=== PATIENT | male | born 1940 | race Caucasian/White ===

== ENCOUNTER 2020-01-25 21:40 | Emergency (ER) | payer MEDICARE, SELFPAY ==
[2020-01-25 22:04] VITALS: BP 147/87; PULSE 70; RESP 18; TEMP 36.7; O2SAT 94; BMI 22.8
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
--- NOTE | 2020-01-25 22:36 | XRR_ITS ---
PROCEDURE INFORMATION: Exam: XR Chest, 1 View Exam date and time: 01/25/2020 10:40 PM Age: 79 years old Clinical indication: Shortness of breath; Additional info: AMS TECHNIQUE: Imaging protocol: XR of the chest Views: 1 view. COMPARISON: CR Chest 2 views* [id number] 11/22/2018 2:23 PM FINDINGS: Lungs: Stable calcified nodule in the left apex. Lungs are otherwise clear. Pleural space: There is no pleural effusion or pneumothorax. Heart/Mediastinum: Cardiomediastinal contours are unremarkable. 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 XR/XR chest 1V portable [id number] IMPRESSION: No acute findings.
--- NOTE | 2020-01-25 22:36 | CTR_ITS ---
PROCEDURE INFORMATION: Exam: CT Head Without Contrast Exam date and time: 01/25/2020 10:38 PM Age: 79 years old Clinical indication: Altered mental status/memory loss; Confusion or disorientation; Patient HX: Ams/confusion TECHNIQUE: Imaging protocol: Computed tomography of the head without contrast. Total DLP: 854.43 mGy-cm Radiation optimization: All CT scans at this facility use at least one of these dose optimization techniques: automated exposure control; mA and/or kV adjustment per patient size (includes targeted exams where dose is matched to clinical indication); or iterative reconstruction. COMPARISON: CT head wo con* [id number] 07/25/2018 11:36 AM FINDINGS: Brain: No acute intracranial hemorrhage or mass effect. There is decreased attenuation in the periventricular white matter, likely from microvascular disease. There are old lacunar infarcts in the basal ganglia regions bilaterally, and right thalamus. Additional old infarct suspected in the right periventricular white matter, not significantly changed. No definite acute infarct by CT. MRI could be more sensitive/specific for detection, as clinically directed. Ventricles: Ventricle size is normal for age. Bones/joints: No definite acute skull fracture. Sinuses: Included paranasal sinuses are essentially clear. Mastoid air cells: No significant acute finding. Vasculature: Vascular calcifications in the internal carotid and vertebral basilar systems. CT/CT head wo con* [id number] IMPRESSION: 1. No acute intracranial hemorrhage or mass effect. 2. Changes of microvascular disease, and old infarcts, details above. 3. No definite acute infarct by CT, see above. 4. Other findings discussed above. Radiation Dose CTDIVOL = (mGy): DLP = 854.43 (mGy-cm)
--- NOTE | 2020-01-25 22:37 | ECG_ITS ---
Measurements Intervals [place] Rate: 61 P: 72 WV: 153 QRS: 39 QRSD: 113 T: 69 QT: 376 QTc: 379 SINUS RHYTHM WITH OCCASIONAL SUPRAVENTRICULAR PREMATURE COMPLEXES ANTEROSEPTAL MYOCARDIAL INFARCTION , PROBABLY RECENT [40+ ms Q WAVE IN V1-V4] ACUTE VT INTERPRETATION BASED ON A DEFAULT AGE OF 40 YEARS Compared to ECG 07/01/2018 08:36:45 Myocardial infarct finding now present Electronically Signed On 01-26-2020 19:59:29 EMBROIDERY ASSISTANT by Estella Choudhury M.D. [id number] dover
[2020-01-25] MEDS: sodium chloride 0.9% 1,000 ML 999 ML IV (23:01)
[2020-01-25 23:07] LABS: Basophils # 0.1 10^3/uL (0.0-0.1); Basophils % 0.6 %; Eosinophils # 0.1 10^3/uL (0.0-0.8); Eosinophils % 1.3 %; Hematocrit 43.4 % (42.0-52.0); Hemoglobin 14.2 g/dL (11.7-16.6); Lymphocytes # 1.6 10^3/uL (0.8-4.8); Lymphocytes % 16.8 %; Mean Corpuscular HGB Conc 32.7 g/dL (30.0-36.0); Mean Corpuscular Hemoglobin 30.8 pg (28.0-34.0); Mean Corpuscular Volume 94.1 fL (80-94); Mean Platelet Volume 9.3 fL (7.4-10.4); Monocytes # 0.8 10^3/uL (0.2-0.9); Neutrophils # 6.9 10^3/uL (1.8-7.7); Nucleated Red Blood Cells % 0 %; Platelet Count 247 10^3/cmm (130-400); Red Blood Count 4.61 10^6/uL (4.1-5.3); Red Cell Distribution Width 12.4 % (12.1-15.1); White Blood Count 9.4 10^3/uL (4.0-10.0)
[2020-01-25 23:08] LABS: Add Urine Microscopic? NO
[2020-01-25 23:22] LABS: Bilirubin Urine Neg (NEGATIVE); Blood Urine Neg (Negative); Glucose Urine UA Norm (Normal); Ketones Urine Negative (Negative); Leukocyte Esterase Urine Negative (Negative); Nitrate Urine Negative (Negative); Protein Urine Neg (Negative); Specific Gravity, Urine 1.005 (1.005-1.030); Urine Appearance Clear (CLEAR); Urine Color Straw (Yellow); Urobilinogen Urine Norm (Negative); pH Urine 7 (5-7)
[2020-01-26 00:09] LABS: Alanine Aminotransferase 11 U/L (0-41); Albumin Level 4.5 g/dL (3.5-5.2); Alkaline Phosphatase 66 IU/L (40-130); Anion Gap 17.3 (5-19); Aspartate Amino Transferase 20 U/L (0-40); Blood Urea Nitrogen 16 mg/dL (8-23); Calcium 9.3 mg/dL (8.5-10.5); Carbon Dioxide 30 mmol/L (22-29); Chloride 93 mmol/L (98-107); Creatinine Clr Calc Pharmacy 40.0275; Globulin 2.4 g/dL (1.3-4.6); Glucose 115 mg/dL (65-115); Potassium 3.3 mmol/L (3.5-5.1); Sodium 137 mmol/L (136-145); Total Bilirubin 0.6 mg/dL (0.15-1.2); Total Protein 6.9 g/dL (6.6-8.7)
[2020-01-26 00:23] LABS: Troponin(5th) Baseline 42 ng/mL (0-15)
[2020-01-26 01:28] VITALS: BP 145/81; PULSE 73; RESP 18; O2SAT 97
== END 2020-01-26 01:29 | disposition home or self-care (01) ==
PROVIDERS: Emergency Provider Emergency Medicine; Family Provider Internal Medicine
DX: R41.82 Altered mental status, unspecified (principal); Z87.891 Personal history of nicotine dependence; Z86.73 Personal history of transient ischemic attack (TIA), and cerebral infarction without residual deficits
CPT/HCPCS: 36415; 70450; 71045; 80053; 81003; 83605; 84484; 85025; 87040; 87205; 93005; 96360; 99283; 99284; J7030

== ENCOUNTER → 2020-04-23 08:40 | Outpatient (BNVA) | payer MEDICARE, SELFPAY | PROVIDERS: Family Provider Internal Medicine; Visit Provider Urology | DX: R97.20 Elevated prostate specific antigen [PSA] (principal) | CPT/HCPCS: 81001; 84153 ==

== ENCOUNTER → 2020-09-01 15:39 | Outpatient (BNVA) | payer MEDICARE, SELFPAY | PROVIDERS: Family Provider Internal Medicine; Visit Provider Family Medicine | DX: Z20.828 Contact with and (suspected) exposure to other viral communicable diseases (principal) | CPT/HCPCS: 87635 ==

== ENCOUNTER → 2021-01-20 13:10 | Outpatient (BNVA) | payer MEDICARE, SELFPAY | PROVIDERS: Family Provider Internal Medicine; Visit Provider Urology | DX: R97.20 Elevated prostate specific antigen [PSA] (principal) | CPT/HCPCS: 81003; 84153 ==

== ENCOUNTER 2022-01-31 12:24 | Outpatient (CLI) | payer MEDICARE, SELFPAY ==
--- NOTE | 2022-01-31 12:39 | XRR_ITS ---
PROCEDURE INFORMATION: Exam: XR Chest Exam date and time: 01/31/2022 12:39 PM Age: 81 years old Clinical indication: Condition or disease; Lung condition and disease; Copd; With exacerbation; Patient HX: SOB coughing for years; Additional info: Copd w/exacerbation TECHNIQUE: Imaging protocol: XR of the chest. Views: 2 views. COMPARISON: CR XR chest 1V portable [id number] 01/25/2020 10:46 PM FINDINGS: Lungs: There is a small calcified granuloma in the left apex. Otherwise the lungs are clear. Pleural spaces: Unremarkable. No pleural effusion. No pneumothorax. Heart/Mediastinum: Unremarkable. No cardiomegaly. Bones/joints: Unremarkable. XR/XR chest 2V* [id number] IMPRESSION: No acute abnormality is seen in the chest.
== END 2022-01-31 12:25 | disposition home or self-care (01) ==
PROVIDERS: Visit Provider Clinical Nurse Specialist Adult Health
DX: J44.1 Chronic obstructive pulmonary disease with (acute) exacerbation (principal)
CPT/HCPCS: 71046

== ENCOUNTER → 2022-05-09 14:53 | Outpatient (BNVA) | payer MEDICARE, SELFPAY | PROVIDERS: Visit Provider Family Medicine | DX: R60.9 Edema, unspecified (principal); I10 Essential (primary) hypertension; F03.90 Unspecified dementia, unspecified severity, without behavioral disturbance, psychotic disturbance, mood disturbance, and anxiety; N39.0 Urinary tract infection, site not specified | CPT/HCPCS: 80053; 81000; 83880; 84443; 87086 ==

== ENCOUNTER → 2022-06-23 07:54 | Outpatient (BNVA) | payer MEDICARE, SELFPAY | PROVIDERS: Visit Provider Family Medicine | DX: I10 Essential (primary) hypertension (principal); E78.5 Hyperlipidemia, unspecified | CPT/HCPCS: 80053; 80061 ==

== ENCOUNTER → 2023-02-13 10:18 | Outpatient (BNVA) | payer MEDICARE, SELFPAY | PROVIDERS: PCP Family Medicine; Visit Provider Family Medicine | DX: I10 Essential (primary) hypertension (principal); E78.5 Hyperlipidemia, unspecified | CPT/HCPCS: 80053; 80061; 85025 ==

== ENCOUNTER 2023-03-04 17:49 | Inpatient (IN) | payer MEDICARE, SELFPAY ==
[2023-03-04 17:55] VITALS: BP 142/88; PULSE 81; RESP 16; TEMP 36.4; O2SAT 96
--- NOTE | 2023-03-04 17:59 | ECG_ITS ---
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 Measurements Intervals [place] Rate: 80 P: 148 IA: 147 QRS: 48 QRSD: 94 T: 160 QT: 385 QTc: 444 Interpretive Statements Possibly atrial fibrillation with an abnormal nuclear response rate. Collaborative position. LOW QRS VOLTAGE IN PRECORDIAL LEADS [QRS DEFLECTION < 1.0 mV IN CHEST LEADS] INCOMPLETE RIGHT BUNDLE BRANCH BLOCK [90+ ms QRS DURATION, TERMINAL R IN V1/V2, 40+ ms S IN I/aVL/V4/V5/V6] ANTEROSEPTAL MYOCARDIAL INFARCTION , OF INDETERMINATE AGE [40+ ms Q WAVE IN V1-V4] Compared to ECG 01/25/2020 23:11:01 Low QRS voltage now present Incomplete right bundle-branch block now present Sinus rhythm no longer present Myocardial infarct finding still present Electronically Signed On 03-05-2023 21:57:43 CDT by Estella Choudhury M.D. [id number] f
--- NOTE | 2023-03-04 17:59 | XRR_ITS ---
PROCEDURE INFORMATION: Exam: XR Chest Exam date and time: 03/04/2023 5:18 PM Age: 83 years old Clinical indication: Dyspnea; Additional info: Weakness TECHNIQUE: Imaging protocol: Radiologic exam of the chest. Views: 1 view. COMPARISON: CR XR chest 2V* [id number] 01/31/2022 12:52 PM FINDINGS: Lungs: Stable left apical calcified granuloma. No consolidation. Pleural spaces: Unremarkable. No pleural effusion. No pneumothorax. Heart/Mediastinum: Stable heart size. Bones/joints: Stable bones. XR/XR chest 1V portable [id number] IMPRESSION: No acute findings.
--- NOTE | 2023-03-04 17:59 | CTR_ITS ---
PROCEDURE INFORMATION: Exam: CTA Head With Contrast, Arteriography Exam date and time: 03/04/2023 6:09 PM Age: 83 years old Clinical indication: Stroke-like symptoms; Altered mental status/memory loss and drowsines/somnolence; Additional info: CVA TECHNIQUE: Imaging protocol: Computed tomographic angiography of the head with contrast. Exam focused on the arteries. 3D rendering (Not supervised by radiologist): MIP and/or 3D reconstructed images were created by the technologist. Radiation optimization: All CT scans at this facility use at least one of these dose optimization techniques: automated exposure control; mA and/or kV adjustment per patient size (includes targeted exams where dose is matched to clinical indication); or iterative reconstruction. Contrast material: OMNI 350; Contrast volume: 100 ml; Contrast route: INTRAVENOUS (IV); REPORTING DATA: Count of CT and Cardiac NM exams in prior 12 months: This patient has received 0 known CTs and 0 known cardiac nuclear medicine studies in the 12 months prior to the current study. COMPARISON: CT angio headneck* [id number] 02/16/2018 5:07 PM RADIATION DOSE METRICS: Total DLP (mGy-cm): 1021.68 FINDINGS: ANTERIOR CIRCULATION: Right internal carotid artery: Intracranial segment is patent with no significant stenosis. No aneurysm. Right middle cerebral artery: No occlusion or significant stenosis. No aneurysm. Right anterior cerebral artery: No occlusion or significant stenosis. No aneurysm. Left internal carotid artery: Intracranial segment is patent with no significant stenosis. No aneurysm. Left middle cerebral artery: No occlusion or significant stenosis. No aneurysm. Left anterior cerebral artery: No occlusion or significant stenosis. No aneurysm. POSTERIOR CIRCULATION: Right vertebral artery: No occlusion or significant stenosis. No aneurysm. Left vertebral artery: No occlusion or significant stenosis. No aneurysm. Basilar artery: No occlusion or significant stenosis. No aneurysm. Right posterior cerebral artery: No occlusion or significant stenosis. No aneurysm. Left posterior cerebral artery: No occlusion or significant stenosis. No aneurysm. Brain: Bilateral basal ganglia chronic lacunar-type infarcts and right thalamic chronic lacunar-type infarct is unchanged. There is a new region of hypodensity in the medial left thalamus for example on series 4, image 27 suspicious for an acute or subacute lacunar-type infarct. Involutional changes of the brain are stable. No midline shift. Small old infarct right periventricular deep white matter unchanged. Cerebral ventricles: Stable ventricular size with stable mild ex vacuo prominence. Bones/joints: Unremarkable. No acute fracture. Soft tissues: Unremarkable. PROCEDURE INFORMATION: Exam: CTA Neck With Contrast Exam date and time: 03/04/2023 6:09 PM Age: 83 years old Clinical indication: Stroke-like symptoms; Altered mental status/memory loss and drowsines/somnolence; Additional info: CVA TECHNIQUE: Imaging protocol: Computed tomographic angiography of the neck with contrast. 3D rendering (Not supervised by radiologist): MIP and/or 3D reconstructed images were created by the technologist. Radiation optimization: All CT scans at this facility use at least one of these dose optimization techniques: automated exposure control; mA and/or kV adjustment per patient size (includes targeted exams where dose is matched to clinical indication); or iterative reconstruction. Contrast material: OMNI 350; Contrast volume: 100 ml; Contrast route: INTRAVENOUS (IV); REPORTING DATA: Count of CT and Cardiac NM exams in prior 12 months: This patient has received 0 known CTs and 0 known cardiac nuclear medicine studies in the 12 months prior to the current study. COMPARISON: CT angio headneck* [id number] 02/16/2018 5:07 PM RADIATION DOSE METRICS: Total DLP (mGy-cm): 1021.68 FINDINGS: Right common carotid artery: No stenosis. No dissection or occlusion. Right internal carotid artery: No stenosis of the extracranial segment. No dissection or occlusion. Right external carotid artery: No occlusion or stenosis of the origin. Left common carotid artery: No stenosis. No dissection or occlusion. Left internal carotid artery: No stenosis of the extracranial segment. No dissection or occlusion. Left external carotid artery: No occlusion or stenosis of the origin. Right vertebral artery: No stenosis. No dissection or occlusion. Left vertebral artery: No stenosis. No dissection or occlusion. Lymph nodes: Lymph nodes in the mediastinum and left hilum consistent with old granulomatous disease. Soft tissues: Normal. No significant soft tissue swelling. Bones/joints: No acute fracture. Other findings: 1 cm left apical calcified granuloma. CT/CT angio headneck* [id number] IMPRESSION: 1. New region of hypodensity in the left medial thalamus suspicious for acute or subacute ischemia. This can be confirmed with MRI for follow-up. 2. No large vessel occlusion or high-grade stenosis. IMPRESSION: Negative CTA of the neck. REFERENCES: NASCET CRITERIA. The degree of stenosis in the cervical segment of the internal carotid artery is based on NASCET criteria. Normal is no stenosis. Mild is less than 50% stenosis. Moderate is 50-69% stenosis. Severe is 70% to 99% stenosis. Total occlusion is no detectable patent lumen.
--- NOTE | 2023-03-04 18:05 | PC.NURSE ---
Pt on bedside lunchroom monitor
[2023-03-04] MEDS: iohexol 350 mg/mL 500 mL Btl (per mL) IV (18:09)
--- NOTE | 2023-03-04 18:13 | W.ED.NEUROSD ---
HPI - Neuro Symptoms/Deficit General: Chief Complaint: Neuro Symptoms/Deficit Stated Complaint: stroke symptoms Time Seen by Provider: 03/04/23 17:54 Source: patient and family Mode of arrival: ambulatory Limitations: altered mental status History of Present Illness: 83-year-old male is here with family his states that he does have dementia states he is usually up talking with normal conversation she states that she last seen him last night at 10 when he went to bed she states that this morning when he woke up he was not acting his normal self she states that he has been having a hard time speaking he has been very confused she does seem to have some left-sided weakness. No known recent illnesses he has had urinary tract infections in the past patient is able to follow some commands but not many he is only alert to self he has slurred speech here. Review of Systems General: Reports: ROS unobtainable due to mental status [facility] ED PFSH: Medical History Dementia Elevated PSA HTN (hypertension) Hyperlipemia Lewy body dementia with behavioral disturbance TIA (transient ischemic attack) Family History Mother Diabetes Father CHF (congestive heart failure) Other CAD (coronary artery disease) Stroke Social History Smoking and tobacco status: former smoker Alcohol intake: current Alcohol intake frequency: holidays/special occasions only Adopted: No Caregiver/support person: No Lives independently: No Household members: spouse Marital status: Current occupational status: retired Current gender identity: Male NIH stroke score NIHSS: Level Of Consciousness - 1a: 0 Level Of Consciousness Questions - 1b: One Correct Level Of Consciousness Commands - 1c: Both Correct Best Gaze - 2: Normal Visual Reyes - 3: No Visual Loss Facial Palsy - 4: Normal Motor Arm Right - 5: No Drift Motor Arm Left - 5: Effort Against [place] Motor Leg Right - 6: No Drift Motor Leg Left - 6: Effort Against [place] Limb Ataxia - 7: Absent Sensory - 8: Mild To Moderate Loss Best Language - 9: Mild/Moderate Aphasia Dysarthia - 10: Mild/Moderate Dysarthia Extinction And Inattention - 11: 0 Score: Total Score: 8 Physical Exam Const: COMMON NORMALS: negative for patient oriented x3 GENERAL APPEARANCE: lethargic and ill appearing ORIENTATION/CONSCIOUSNESS: Yes lethargic HENMT: COMMON NORMALS: normocephalic and atraumatic HEAD & SCALP: normocephalic and atraumatic Eye: COMMON NORMALS: Equal, round and reactive pupils present and EOMs intact bilaterally PUPIL: Yes Equal, round and reactive pupils present Neck/C-Spine: COMMON NORMALS: full ROM and supple Chest: COMMONS NORMALS: normal inspection of the chest and normal palpation of entire chest wall Resp: COMMON NORMALS: normal respiratory effort, No retractions, No use of accessory muscles and clear to auscultation bilaterally AUSCULTATION: clear to auscultation bilaterally Cardio: COMMON NORMALS: regular rate, regular rhythm and No murmurs present (Cardio) RATE: regular rate RHYTHM: regular rhythm GI: COMMON NORMALS: Normal to inspection, nondistended, normoactive bowel sounds present, Soft to palpation, non-tender and no masses PALPATION: Yes Soft to palpation Extremity: COMMON NORMALS: normal to inspection and full ROM Neuro: COMMON NORMALS: negative for patient oriented x3 SENSORIUM/ORIENTATION: Yes lethargic OTHER: orientated to self, pt has slurred speech along with drift of leg leg and arm Psych: COMMON NORMALS: mental status grossly normal, Normal thought process present and cooperative THOUGHT PROCESS: Normal thought process present Skin: COMMON NORMALS: no rashes or lesions noted and no wounds GENERAL SKIN EXAM: no rashes or lesions noted Course Vital Signs: Vital signs: Vital Signs Temperature 97.5 F L 03/04/23 17:55 Pulse Rate 72 03/04/23 19:16 Respiratory Rate 13 03/04/23 19:16 Blood Pressure 107/67 03/04/23 19:16 Pulse Oximetry 99 03/04/23 19:16 Oxygen Delivery Me thod 03/04/23 19:16 Oxygen Flow Rate 2 03/04/23 19:16 MDM - Neuro Symptoms/Deficit Medical Decision Making Patient presents for likely CVA head CT does show a subacute or acute infarct patient has become more somnolent here he is not a thrombectomy candidate his last known normal was last night he is not a tPA candidate I did speak to family about CODE STATUS today states that he would be DNR and DNI will make him DNR and DNI at this time. Lab Data 03/04/23 18:28 03/04/23 18:28 Radiology Impressions Chest X-Ray 03/04/23 17:59 IMPRESSION: No acute findings. Head/Neck CTA 03/04/23 17:59 IMPRESSION: 1. New region of hypodensity in the left medial thalamus suspicious for acute or subacute ischemia. This can be confirmed with MRI for follow-up. 2. No large vessel occlusion or high-grade stenosis. IMPRESSION: Negative CTA of the neck. REFERENCES: NASCET CRITERIA. The degree of stenosis in the cervical segment of the internal carotid artery is based on NASCET criteria. Normal is no stenosis. Mild is less than 50% stenosis. Moderate is 50-69% stenosis. Severe is 70% to 99% stenosis. Total occlusion is no detectable patent lumen. ADDENDUM: 03/04/23 006 THIS REPORT CONTAINS FINDINGS THAT MAY BE CRITICAL TO PATIENT CARE. The findings were verbally communicated via telephone conference with LARRY Mace at 6:48 PM CDT on 03/04/2023. The findings were acknowledged and understood. Laboratory Results WBC 10.6 10^3/uL (4.0-10.0) H 03/04/23 18: RBC 4.17 10^6/uL (4.1-5.3) 03/04/23 18:28 Hgb 12.4 g/dL (11.7-16.6) 03/04/23 18: Hct 38.8 % (42.0-52.0) L 03/04/23 18: MCV 93.0 fl (80-94) 03/04/23 18: MCH 29.7 pg (28.0-34.0) 03/04/23 18: MCHC 32.0 g/dL (30.0-36.0) 03/04/23 18: RDW 11.9 % (12.1-15.1) L 03/04/23 18: Plt Count 235 10^3/cmm (130-400) 03/04/23 18: MPV 9.5 fL (7.4-10.4) 03/04/23 18: Neut % (Auto) 85.1 % 03/04/23 18:28 Lymph % (Auto) 6.7 % 03/04/23 18: Bryan % (Auto) 6.1 % 03/04/23 18: Eos % (Auto) 1.7 % 03/04/23 18: Baso % (Auto) 0.4 % 03/04/23 18: Neut # (Auto) 8.93 10^3/uL (1.8-7.7) H 03/04/23 18: Lymph # (Auto) 0.7 10^3/uL (0.8-4.8) L 03/04/23 18: Bryan # (Auto) 0.6 10^3/uL (0.2-0.9) 03/04/23 18: Eos # (Auto) 0.2 10^3/uL (0.0-0.8) 03/04/23 18: Baso # (Auto) 0.0 10^3/uL (0.0-0.1) 03/04/23 18: Nucleated RBC % (auto) 0 % 03/04/23 18: Nucleated RBCs # 0.0 /100WBC 03/04/23 18: PT 14.60 SECONDS (12.1-14.9) 03/04/23 18: INR 1.10 (0.8-1.2) 03/04/23 18: APTT 23.1 SECONDS (23.9-36.7) L 03/04/23 18: Sodium 137 mmol/L (136-145) 03/04/23 18: Potassium 4.1 mmol/L (3.5-5.1) 03/04/23 18: Chloride 98 mmol/L (98-107) 03/04/23 18: Carbon Dioxide 27 mmol/L (22-29) 03/04/23 18: Anion Gap 16.1 (5-19) 03/04/23 18: BUN 21 mg/dL (8-23) 03/04/23 18: Creatinine 1.2 mg/dL (0.7-1.2) 03/04/23 18: GFR Calculation Not Reportable 03/04/23 18: Glucose 147 mg/dL (65-115) H 03/04/23 18:28 POC Glucose 138 mg/dL (70-110) H 03/04/23 18:31 Calculated Osmolality 290 mOsm/kg (285-295) 03/04/23 18:28 Calcium 8.4 mg/dL (8.5-10.5) L 03/04/23 18:28 Total Bilirubin 0.6 mg/dL (0.15-1.2) 03/04/23 18:28 AST 10 U/L (0-40) 03/04/23 18:28 ALT < 5 U/L (0-41) 03/04/23 18:28 Alkaline Phosphatase 95 U/L (40-130) 03/04/23 18:28 Total Protein 6.5 g/dL (6.6-8.7) L 03/04/23 18:28 Albumin 3.8 g/dL (3.5-5.2) 03/04/23 18:28 Globulin 2.7 g/dL (1.3-4.6) 03/04/23 18:28 Urine Color Yellow (Yellow) 03/04/23 18:45 Urine Appearance Clear (CLEAR) 03/04/23 18:45 Urine pH 6 (5-7) 03/04/23 18:45 Ur Specific [place] 1.010 (1.005-1.030) 03/04/23 18:45 Urine Protein Neg (Negative) 03/04/23 18:45 Urine Glucose (UA) Norm (Normal) 03/04/23 18:45 Urine Ketones Negative (Negative) 03/04/23 18:45 Urine Blood 2+ (Negative) H 03/04/23 18:45 Urine Nitrate Negative (Negative) 03/04/23 18:45 Urine Bilirubin Neg (Negative) 03/04/23 18:45 Urine Urobilinogen Norm mg/dL (Negative) 03/04/23 18:45 Ur Leukocyte Esterase Negative (Negative) 03/04/23 18:45 Urine RBC 0-4 /hpf (0-2) H 03/04/23 18:45 Urine WBC None /hpf (0-5) 03/04/23 18:45 Ur Squamous Epith Cells None /hpf (0-5) 03/04/23 18:45 Amorphous Sediment Not Reportable 03/04/23 18:45 Urine Bacteria Trace /hpf (NONE) 03/04/23 18:45 Urine Mucus 2+ /hpf 03/04/23 18:45 Urine Opiates Screen Negative ng/mL (Negative) 03/04/23 18:45 Ur Barbiturates Screen Negative ng/mL (Negative) 03/04/23 18:45 Ur Phencyclidine Scrn Negative ng/mL (Negative) 03/04/23 18:45 Ur Amphetamines Screen Negative ng/mL (Negative) 03/04/23 18:45 U Benzodiazepines Scrn Negative ng/mL (Negative) 03/04/23 18:45 Urine Cocaine Screen Negative ng/mL (Negative) 03/04/23 18:45 U Marijuana (THC) Screen Negative ng/mL (Negative) 03/04/23 18:45 EKG Data EKG 1: I personally reviewed and interpreted this EKG as follows: EKG interpretation date: 03/04/23 EKG interpretation time: 17:59 Interpretation: nsr hr [address] or t wave abnormalities qrs 94 qtc 420 Discharge Plan Discharge Patient Disposition: Admitted As Inpatient Clinical Impression: Cerebrovascular accident Condition: Stable Prescriptions: No Action furosemide 20 mg tablet 40 mg PO DAILY albuterol sulfate [Ventolin HFA] 90 mcg/actuation HFA aerosol inhaler 2 puff inhalation Q6H PRN (Reason: shortness of breath or wheezing) Qty: 8.5 11RF nystatin 100,000 unit/gram powder 1 applic topical BID Qty: 30 4RF terbinafine HCl [Lamisil AT] 1 % cream 1 applic topical BID Qty: 30 2RF Rx Instructions: apply to feet bid simvastatin 20 mg tablet See Rx Instructions .ROUTE .COMPLEX Qty: 90 3RF Dose Instruction: TAKE 1 TABLET EVERY DAY FOR HYPERLIPIDEMIA Rx Instructions: TAKE 1 TABLET EVERY DAY FOR HYPERLIPIDEMIA escitalopram oxalate 10 mg tablet See Rx Instructions .ROUTE .COMPLEX Qty: 90 3RF Dose Instruction: TAKE 1 TABLET EVERY DAY FOR 90 DAYS Rx Instructions: TAKE 1 TABLET EVERY DAY FOR 90 DAYS amlodipine 5 mg tablet 5 mg PO DAILY Qty: 30 11RF memantine 10 mg tablet See Rx Instructions .ROUTE .COMPLEX Qty: 180 11RF Dose Instruction: TAKE 1 TABLET TWICE DAILY Rx Instructions: TAKE 1 TABLET TWICE DAILY metoprolol tartrate 25 mg tablet See Rx Instructions .ROUTE .COMPLEX Qty: 180 11RF Dose Instruction: TAKE 1 TABLET TWICE DAILY Rx Instructions: TAKE 1 TABLET TWICE DAILY tamsulosin 0.4 mg capsule See Rx Instructions .ROUTE .COMPLEX Qty: 90 11RF Dose Instruction: TAKE 1 CAPSULE EVERY DAY Rx Instructions: TAKE 1 CAPSULE EVERY DAY Referrals: Shabbir Moran MD [Primary Care Provider] - Coding Level of Care Code ED [facility] Technician for Sarah Gomez
[2023-03-04 18:34] LABS: Glucose Point of Care 138 mg/dL (70-110)
[2023-03-04 18:35] LABS: Basophils % 0.4 %; Eosinophils # 0.2 10^3/uL (0.0-0.8); Eosinophils % 1.7 %; Hematocrit 38.8 % (42.0-52.0); Hemoglobin 12.4 g/dL (11.7-16.6); Lymphocytes # 0.7 10^3/uL (0.8-4.8); Lymphocytes % 6.7 %; Mean Corpuscular Hemoglobin 29.7 pg (28.0-34.0); Mean Platelet Volume 9.5 fL (7.4-10.4); Monocytes # 0.6 10^3/uL (0.2-0.9); Monocytes % 6.1 %; Neutrophils # 8.93 10^3/uL (1.8-7.7); Nucleated Red Blood Cells % 0 %; Platelet Count 235 10^3/cmm (130-400); Red Blood Count 4.17 10^6/uL (4.1-5.3); Red Cell Distribution Width 11.9 % (12.1-15.1); White Blood Count 10.6 10^3/uL (4.0-10.0)
[2023-03-04 18:44] VITALS: BP 121/68; PULSE 74; RESP 15; O2SAT 93
[2023-03-04 18:48] LABS: Partial Thromboplastin Time 23.1 SECONDS (23.9-36.7)
[2023-03-04 18:52] LABS: Alanine Aminotransferase < 5 U/L (0-41); Albumin Level 3.8 g/dL (3.5-5.2); Alkaline Phosphatase 95 U/L (40-130); Anion Gap 16.1 (5-19); Aspartate Amino Transferase 10 U/L (0-40); Blood Urea Nitrogen 21 mg/dL (8-23); Calcium 8.4 mg/dL (8.5-10.5); Carbon Dioxide 27 mmol/L (22-29); Chloride 98 mmol/L (98-107); Globulin 2.7 g/dL (1.3-4.6); Glucose 147 mg/dL (65-115); Osmolality Calculated 290 mOsm/kg (285-295); Potassium 4.1 mmol/L (3.5-5.1); Sodium 137 mmol/L (136-145); Total Bilirubin 0.6 mg/dL (0.15-1.2); Total Protein 6.5 g/dL (6.6-8.7)
[2023-03-04 18:53] LABS: Slide Review Slide Review Perform
[2023-03-04 18:57] LABS: Neutrophils % 85.1 %
[2023-03-04 19:00] LABS: Urine Appearance Clear (CLEAR); Urine Color Yellow (Yellow); pH Urine 6 (5-7)
[2023-03-04 19:01] LABS: Add Urine Microscopic? YES; Bilirubin Urine Neg (Negative); Blood Urine 2+ (Negative); Glucose Urine UA Norm (Normal); Ketones Urine Negative (Negative); Leukocyte Esterase Urine Negative (Negative); Nitrate Urine Negative (Negative); Protein Urine Neg (Negative); Urobilinogen Urine Norm (Negative)
[2023-03-04 19:02] LABS: Amphetamines Screen Urine Negative (Negative); Barbiturates Screen Urine Negative (Negative); Benzodiazepines Screen Urine Negative (Negative); Cocaine Screen Urine Negative (Negative); Opiate Screen Urine Negative (Negative); PCP Screen Urine Negative (Negative); THC Screen Urine Negative (Negative)
[2023-03-04 19:03] LABS: Bacteria Urine TRACE /hpf; RBC Urine 0-4 /hpf (0-2)
[2023-03-04 19:04] LABS: Mucus Urine 2+ /hpf
[2023-03-04 19:16] VITALS: BP 107/67; PULSE 72; RESP 13; O2SAT 99
[2023-03-04] MEDS: aspirin 300 mg Supp PR (19:18)
--- NOTE | 2023-03-04 19:35 | P.HP_ITS ---
Providers/Chief Complaint Primary Care Provider: Shabbir Moran MD Chief Complaint: stroke symptoms History of Present Illness Cooper Fermin is a 83 year old male with past medical history of dementia, hypertension, hyperlipidemia, TIA who was brought into the hospital by his family for not acting normal. Last well-known last night at 10 PM when he went to bed. Ever since he woke up this morning he has been having speech difficulty and has been confused along with some left-sided weakness. No recent illnesses however does have a history of UTIs and follows with Dr. Carrillo. On arrival to ER patient was able to follow some commands and had slurred speech. Only oriented to self. NIH 8. Patient unable to provide any history at this time. He is a former smoker and does drink alcohol on occasion. ER doctor spoke with family regarding patient's results and they would like to elect CODE STATUS to be DNR/DNI. His CODE STATUS was changed in the ER to DNR/DNI. There is no large vessel occlusion therefore no thrombectomy was recommended. Seen in room with family present. Patient is breathing normally with no acute respiratory distress however is unresponsive. He does not withdraw to sternal rub but does withdraw to pain. Family states he would like to keep him DNR/DNI for now. Nursing staff did report he had a few apneic episodes earlier. ED course: 107/67, 13, 72, 97.5, saturating 99% on 2 L nasal cannula. Chest x- ray did not show acute findings. Head and neck CTA showed new region of hypodensity in left medial thalamus suspicious for acute or subacute ischemia. This could be confirmed with MRI for follow-up. No large vessel occlusion or high-grade stenosis found. Negative CTA of neck. WBC 10.6, hemoglobin 12.4, platelet 235, PT 14.6, INR 1.0, sodium 137, potassium 4.1, chloride 98, c reatinine 1.2. UA positive for 2+ blood negative for leukocyte esterase negative for nitrates, trace bacteria positive, 2+ mucus. Drug screen negative. EKG did not show any ischemic changes. Medications/Allergies Home Medications Medication Instructions Recorded Confirmed Last Taken Type furosemide 20 mg tablet 40 mg PO DAILY 06/30/22 02/16/23 Unknown History escitalopram oxalate 10 mg tablet See Rx Instructions .Route 10/03/22 02/16/23 Unknown Rx .COMPLEX #90 tabs simvastatin 20 mg tablet See Rx Instructions .Route 10/03/22 02/16/23 Unknown Rx .COMPLEX #90 tabs amlodipine 5 mg tablet 5 mg PO DAILY #30 tabs 10/05/22 02/16/23 Unknown Rx memantine 10 mg tablet See Rx Instructions .Route 10/06/22 02/16/23 Unknown Rx .COMPLEX #180 tabs metoprolol tartrate 25 mg tablet See Rx Instructions .Route 10/06/22 02/16/23 Unknown Rx .COMPLEX #180 tabs tamsulosin 0.4 mg capsule See Rx Instructions .Route 10/06/22 02/16/23 Unknown Rx .COMPLEX #90 caps albuterol sulfate 90 mcg/actuation 2 puff inhalation Q6H PRN 02/16/23 02/16/23 Unknown Rx aerosol inhaler (Ventolin HFA) shortness of breath or wheezing #8.5 grams nystatin 100,000 unit/gram topical 1 applic topical BID #30 grams 02/16/23 02/16/23 Unknown Rx powder terbinafine HCl 1 % topical cream 1 applic topical BID #30 grams 02/16/23 02/16/23 Unknown Rx (Lamisil AT) Allergies Allergy/AdvReac Type Severity Reaction Status Date / Time risperidone [From Risperdal] Allergy Intermediate hallucinati Verified 03/04/23 18:01 ons Penicillins Allergy Unknown Verified 03/04/23 18:01 PFSH Acute PFSH: Medical History Dementia Elevated PSA HTN (hypertension) Hyperlipemia Lewy body dementia with behavioral disturbance TIA (transient ischemic attack) Family History Mother Diabetes Father CHF (congestive heart failure) Other CAD (coronary artery disease) Stroke Social History Smoking and tobacco status: former smoker Alcohol intake: current Alcohol intake frequency: holidays/special occasions only Adopted: No Caregiver/support person: No Lives independently: No Household members: spouse Marital status: Current occupational status: retired Current gender identity: Male Vitals/I&O/Wt Last Vital Signs Temp 97.5 F L 03/04/23 17:55 Pulse 72 03/04/23 19:16 Resp 13 03/04/23 19:16 BP 107/67 03/04/23 19:16 Pulse Ox 99 03/04/23 19:16 O2 Del Method 03/04/23 19:16 O2 Flow Rate 2 03/04/23 19:16 Weight last 48 hrs Weight 68.039 kg Physical Exam Narrative: General: Unresponsive, withdraws to pain. HEENT: Normocephalic, atraumatic, EOMI, no acute respiratory distress Cardio: Regular rate rhythm, normal S1-S2 Respiratory: Clear to auscultation bilaterally no wheezes no rhonchi GI: Abdomen soft, nontender, bowel sounds + Extremities: No lower extremity edema present Neuro: Withdraws to pain. Unable to do a neuro exam. Urinary Catheter Management: Savage: Cath Placed During This Visit: yes Urinary Catheter Date of Insertion: 03/04/23 Urinary Catheter Time of Insertion: 18:40 Data 03/04/23 18:28 03/04/23 18:28 A&P Assessment and plan (1) Cerebrovascular accident: (2) Dementia: (3) Lewy body dementia with behavioral disturbance: (4) Hyperlipemia: (5) HTN (hypertension): Plan #Acute subacute left medial thalamus stroke #History of TIA #History of dementia #Hypertension #Hyperlipidemia #Lewy body dementia - Nursing dysphagia screen ? Speech swallow evaluation ? Neuro check every 2 hours - Allow permissive hypertension ? Hold amlodipine, metoprolol tartrate, furosemide ? Start atorvastatin 80 daily, aspirin 325, Plavix 75 daily once awake and able to interact. ? Repeat head CT for hemorrhagic conversion ? Check echocardiogram to rule out occult arrhythmia ? Place on telemetry ? Continue memantine 10 mg daily ? Place Savage catheter ? PT OT -Normal saline 75 cc/h. - mri brain w/o contrast -Check lipid profile, hemoglobin A1c, TSH ? Patient is unresponsive at this time. Withdraws to pain. Does not respond to sternal rub at all. No breathing compromise at this time. Had a discussion with family. They would like to give him DNR/DNI. They may consider comfort measures but we will wait 24 hours to see if there is any improvement versus worsening before deciding on that. All questions answered. Patient's best friend is present at bedside, , granddaughter, daughter, son-in-law. ? I did discuss with the family regarding MRI however would not change the management however if patient is able to protect his airway by the morning they would like to pursue it to have closure. They state his baseline is confused but physically is able to walk around and make his needs known. DNR/DNI SCDs, heparin SQ twice daily for DVT prophylaxis Prognosis is poor. Attestations Medical Necessity Statement*: Greater than 2 midnight stay for management of left thalamic stroke Diagnoses Cerebrovascular accident I63.9 Dementia F03.90 Lewy body dementia with behavioral disturbance G31.83; F02.81 Hyperlipemia E78.5 HTN (hypertension) I10
[2023-03-04 20:00] VITALS: BP 90/67; PULSE 72; RESP 14; O2SAT 97
[2023-03-04 20:47] LABS: Cholesterol 151 mg/dL (0-200); HDL Cholesterol 42 mg/dL (60-100); LDL Cholesterol Calculated 90 mg/dL (50-129); LDL HDL Ratio 2.14 RATIO (0.00-3.22); Triglycerides 94 mg/dL (0-150)
[2023-03-04 21:01] LABS: Lactate (Lactic Acid level) 0.9 mmol/L (0.5-2.2)
[2023-03-04 21:05] VITALS: BP 118/71; PULSE 63; RESP 17; TEMP 36.3; O2SAT 96
[2023-03-04 21:24] LABS: Thyroid Stimulating Hormone 1.27 uIU/mL (0.27-4.20)
[2023-03-04] MEDS: sodium chloride 0.9% 1,000 ML 75 ML IV (21:43)
[2023-03-04] MEDS: heparin 5,000 unit/mL INJ 1 mL 5000 UNIT SUBCUT (21:44)
[2023-03-04] MEDS: pantoprazole 40 mg SDV IVP (21:44)
[2023-03-04 22:00] VITALS: PULSE 76
[2023-03-04 22:04] LABS: ABG PCO2 55.9 mmHg (35-45); ABG PH Result 7.35 (7.35-7.45); Arterial Blood Gas Hematocrit 42.9 % (42-52); Base Excess ABG 3.9 mmol/L (-2.0-2.0); Blood Gas Allen Test Pos; Blood Gas Sample Site Radial, right; Blood Gas Sample Type Arterial
[2023-03-04 22:05] LABS: Oxygen Device NC
[2023-03-04 23:14] LABS: Estmated Average Glucose 117; Hemoglobin A1C 5.7 % (4.0-6.0)
[2023-03-05] VITALS (12 sets, daily range): BP systolic 106–145; BP diastolic 63–76; PULSE 56–109; RESP 14–20; TEMP 36.4–37.2; O2SAT 94–100
--- NOTE | 2023-03-05 06:00 | USCV_ITS ---
Cooper Fermin Age: 83 Gender: M : 1940 Exam Date: 03/05/2023 12:59 Ordering Phys: Gail Cheung MD Technologist: ZACK Exam Location: [facility] [place] Indication: stroke BP: / HR: 103 Rhythm: Sinus Technical Quality: Adequate MEASUREMENTS (Male / Female) Normal Values 2D ECHO LVOT Diameter 1.9 cm LV Ejection Fraction MOD 2C 56.3 % LV Ejection Fraction 2C AL 55.4 % LA Diameter 2.7 cm M-MODE Aortic Annulus Diameter 3.0 cm LA Ao Ratio MM 1.0 DOPPLER AV Peak Velocity 129.0 cm/s LVOT Peak Velocity 111.0 cm/s AV Area Cont Eq vti 2.4 cm squared AV Area Cont Eq pk 2.4 cm squared MV Area PHT 3.3 cm squared Mitral E to A Ratio 0.6 MV E' Velocity 31.0 cm/s Mitral E to MV E' Ratio 8.0 Mitral E to LV E' Lateral Ratio 7.4 Mitral E to LV E' Septal Ratio 8.9 TR Peak Velocity 288.0 cm/s TR Peak Gradient 33.2 mmHg TV Peak E Velocity 59.0 cm/s Right Atrial Pressure 6.0 mmHg Pulmonary Artery Systolic Pressu 39.2 mmHg FINDINGS Left Ventricle Normal LV size ejection fraction 55%. Mild hypokinesia of the mid and apical septum and the anteroseptal segments.Grade I/IV diastolic dysfunction (abnormal relaxation filling pattern), normal to mildly elevated filling pressures. Right Ventricle The right ventricle is normal in size and function. Right Atrium The right atrium is normal in size. Left Atrium The left atrium is normal in size. Mitral Valve Mild mitral annular calcification. Aortic Valve Thickened aortic valve. Trace aortic valve regurgitation. Tricuspid Valve Mild tricuspid valve regurgitation. Pulmonic Valve Pulmonic valve not well visualized. Pericardium Normal pericardium without effusion. Aorta Normal aortic annulus size. IVC Inferior vena cava not visualized. CONCLUSIONS Normal LV size ejection fraction 55%. Mild hypokinesia of the mid and apical septum and the anteroseptal segments.Grade I/IV diastolic dysfunction (abnormal relaxation filling pattern), normal to mildly elevated filling pressures. Thickened aortic valve. Trace aortic valve regurgitation. Mild mitral annular calcification. Mild tricuspid valve regurgitation. There is no pericardial effusion. There are no intracardiac masses. Comparison with the previous study is difficult because of the difference in the technical quality. Dr Estella Choudhury MD [facility] (Electronically Signed) Final Date: 05 March 2023 18:07 S
[2023-03-05 06:18] LABS: Basophils % 0.4 %; Eosinophils # 0.2 10^3/uL (0.0-0.8); Eosinophils % 1.9 %; Hematocrit 42.3 % (42.0-52.0); Lymphocytes # 1.2 10^3/uL (0.8-4.8); Mean Corpuscular HGB Conc 30.7 g/dL (30.0-36.0); Mean Corpuscular Volume 97.5 fl (80-94); Mean Platelet Volume 9.3 fL (7.4-10.4); Monocytes % 10.2 %; Neutrophils # 7.66 10^3/uL (1.8-7.7); Neutrophils % 75.2 %; Nucleated Red Blood Cells % 0 %; Platelet Count 205 10^3/cmm (130-400); Red Blood Count 4.34 10^6/uL (4.1-5.3); Red Cell Distribution Width 11.9 % (12.1-15.1); White Blood Count 10.2 10^3/uL (4.0-10.0)
[2023-03-05 06:42] LABS: Blood Urea Nitrogen 21 mg/dL (8-23); Calcium 8.5 mg/dL (8.5-10.5); Carbon Dioxide 25 mmol/L (22-29); Chloride 97 mmol/L (98-107); Glucose 86 mg/dL (65-115); Magnesium 2.1 mg/dL (1.7-2.3); Osmolality Calculated 282 mOsm/kg (285-295); Sodium 135 mmol/L (136-145)
[2023-03-05 06:47] LABS: Anion Gap 16.9 (5-19); Potassium 3.9 mmol/L (3.5-5.1)
[2023-03-05] MEDS: heparin 5,000 unit/mL INJ 1 mL 5000 UNIT SUBCUT ×2 (11:17→19:41)
--- NOTE | 2023-03-05 13:05 | PC.NURSE ---
0811 - PT HAS 7 BEAT RUN OF V-TACH. VS STABLE. NOTIFIED DR. GRAVES. NO NEW ORDERS AT THIS TIME.
--- NOTE | 2023-03-05 13:06 | PC.NURSE ---
1000 - PT PULLS AT LYNN CATHETER. PATENT AND INTACT. HEMATURIA NOTED. DEPENDS PLACED ONTO PATIENT FOR SECURITY. NOTIFIED DR. GRAVES. NO NEW ORDERS AT THIS TIME.
[2023-03-05] MEDS: sodium chloride 0.9% 1,000 ML 75 ML IV ×2 (13:47→16:44)
[2023-03-05] MEDS: acetaminophen 650 mg/20.3 mL UDC 500 MG PO (13:48)
--- NOTE | 2023-03-05 14:52 | PC.OT ---
OT evaluation withheld this date due to patient unable to follow direction and mostly non-responsive.
[2023-03-05] MEDS: morphine 10 mg/0.5 mL oral liq UD 5 MG PO ×4 (16:41→23:35)
[2023-03-05] MEDS: pantoprazole 40 mg SDV IVP (19:41)
--- NOTE | 2023-03-05 22:51 | PM.PN ---
Subjective Subjective: Patient has been grimacing and seems uncomfortable. His thinks that the Savage catheter is bothering him. It was placed in the emergency room with a liter of urine output noted. He has a history of prostatic enlargement and is on Flomax chronically. He has developed some pinkish-red tinge to the urine, possibly from Savage trauma. Reviewed with patient's family that given the degree of urinary retention and the blood in the urine the safest consideration right at this moment is to keep the catheter in place and they are understanding. They requested some pain medication. We had a talk about the fact that pain medications and anxiety medications could sedate him and make it more difficult to discern if he is showing signs of improvement or worsening in regards to his stroke. Their primary concern is that he not be uncomfortable and they would like to see how he responds to medications. Speech evaluation was done and a dysphagia level 4 diet was recommended so we will try for some oral pain medications. Family asked about MRI. Patient is currently quite restless. We talked about what getting an MRI in terms of having to lie flat on the table with head maintained in a still position and such. Even before the acute events of late that would have been challenging for Mr. Guajardo. The stroke is visible on CT imaging so I do not feel that MRI at this point in time would change director in this 83-year-old gentleman with dementia and progressive challenges being cared for in the home. and family were okay with not pursuing MRI. Care in the home setting is what patient has always expressed a desire for but it has become more more challenging as his dementia has progressed. This has accelerated with symptoms from the stroke. Mrs. Taylor does not have anyone who can stay with her to help out around the clock so hospice in the home is not something that she thinks that she could do if he were to not get back to his prior baseline. Skilled placement if it could be arranged would be acceptable. He does have speech, swallowing, weakness that may have some rehabilitation potential. The question is going to be if he is able to participate. Per family request I did also discuss options with Dr. Moran, his primary care provider. He felt that if we could make arrangements for placement that would likely be the best scenario under the circumstances. This was relayed to Mrs. Guajardo and she would like to see if placement could potentially be arranged to give him a chance to get back to the baseline he previously had. Baseline is confused but physically able to walk around and make his needs known. Vitals/I&O/Wt Last Vital Signs Temp 98.8 F 03/05/23 20:57 Pulse 70 03/05/23 20:57 Resp 20 H 03/05/23 20:57 BP 108/63 03/05/23 20:57 Pulse Ox 96 03/05/23 20:57 O2 Del Method 03/05/23 08:00 O2 Flow Rate 2 03/05/23 08:00 03/05/23 03/05/23 03/05/23 06:59 14:59 22:59 Intake Total 1000 / 1000 221.25 / 1221.25 Output Total 400 / 1350 600 / 600 Balance -400 / -1350 1000 / 1000 -378.75 / 621.25 Weight last 48 hrs Weight 68.039 kg Physical Exam Narrative: Does not respond verbally but is restless in bed. He is moving all extremities. Lungs are clear. He has a regular rhythm. Savage catheter in place with red-tinged urine. No pitting edema. Urinary Catheter Management: Savage: Cath Placed During This Visit: yes Reason for Continuing Indwelling Catheter: Accurate Measurement of Urinary Output in Critically Ill Patients Urinary Catheter Date of Insertion: 03/04/23 Urinary Catheter Time of Insertion: 18:40 Data 03/05/23 06:10 03/05/23 06:10 Other Labs: Laboratory Tests 03/04/23 03/04/23 03/04/23 18:28 18:28 18:28 INR 1.10 Hemoglobin A1c 5.7 Triglycerides 94 Cholesterol 151 LDL Cholesterol, Calc 90 HDL Cholesterol 42 L TSH 1.27 ECHO CONCLUSIONS ?Normal LV size ejection fraction 55%.? Mild hypokinesia of the ?mid and apical septum and the anteroseptal segments.Grade I/IV ?diastolic dysfunction (abnormal relaxation filling pattern), ?normal to mildly elevated filling pressures. ?Thickened aortic valve. Trace aortic valve regurgitation. ?Mild mitral annular calcification. ?Mild tricuspid valve regurgitation. ?There is no pericardial effusion. ?There are no intracardiac masses. ?Comparison with the previous study is difficult because of the ?difference in the technical quality. A&P Assessment and plan (1) Cerebrovascular accident: Acute left medial thalamic infarction with increased weakness, dysarthria, dysphagia, confusion/change in mental status (2) Lewy body dementia with behavioral disturbance: Chronically on Namenda (3) Hyperlipemia: Chronically on statin therapy (4) HTN (hypertension): Chronically on amlodipine, Lasix, metoprolol (5) Urinary retention: 1 L urine output with Savage catheter placement. Known to have prostatic hypertrophy and has had a previously mildly elevated PSA that has not trended upwards. Has seen Dr. Carrillo in the past. He has developed some hematuria that I believe is from Savage trauma. Urine is pinkish red-tinged presently. Plan On aspirin, Plavix and statin EKG with possible atrial fibrillation per cardiology interpretation, not persistently noted on telemetry thus far Tylenol and morphine oral liquid for pain Can try low-dose benzodiazepines for anxiety how he might respond Resume Flomax Maintain Savage catheter Monitor hematuria for worsening For now continuing on DVT prophylaxis with subcu heparin We will hold amlodipine, metoprolol and Lasix given present blood pressures though monitor for need to resume Resume home Flomax Resume home escitalopram On home namenda Initiate level 4 dysphagia diet Change to maintenance IVFs PT, OT, ST Continue serial neuro Exams Case management to explore placement options. If patient improves enough to participate in rehabilitation skilled placement would be okay. If he does not improve, comfort care a consideration but hospice at home is not an option as the does not have anyone that can assist her and she cannot care for him alone in his current condition. Consider palliative care consultation Supportive care for patient and family To be allowed natural Long-term prognosis is poor Attestations Medical Necessity Statement*: Requires ongoing inpatient stay secondary to symptoms from an acute/subacute thalamic stroke as described. Plans are as indicated Coding Level of Care Code 76810 High Time for a total of 50 minutes, includes reviewing past or interval history, examining/interviewing patient, placing orders, counseling patient/family/other support, discussing plan of care with staff, communicating with other healthcare providers and documenting encounter Diagnoses Cerebrovascular accident I63.9 Lewy body dementia with behavioral disturbance G31.83; F02.81 Hyperlipemia E78.5 HTN (hypertension) I10 Urinary retention R33.9
[2023-03-06] VITALS (11 sets, daily range): BP systolic 108–119; BP diastolic 57–70; PULSE 61–103; RESP 14–20; TEMP 36.3–37.1; O2SAT 89–97
[2023-03-06] MEDS: morphine 10 mg/0.5 mL oral liq UD 5 MG PO (02:06)
--- NOTE | 2023-03-06 03:36 | PC.NURSE ---
at beginning of shift, patient only responded to painful stimuli, throughout the night, patient has become more alert, answers some questions with quick appropriate clear responses, othertimes speech is mumbled, but able to understand enough words that patient is answering appropriately.Family remains at bedside, patient, so far, has made it clear when he is hurting and needing something for pain.
[2023-03-06] MEDS: sodium chloride 0.9% 1,000 ML 75 ML IV (03:47)
[2023-03-06] MEDS: D5-NS 0.45% + KCL 20 mEq 20 MEQ/1,000 ML BAG 75 MEQ IV (05:12)
--- NOTE | 2023-03-06 06:15 | PC.NURSE ---
patient following commands this am, unable to understand speech, family remains at bedside.
[2023-03-06] MEDS: memantine 5 mg tablet 10 MG PO ×2 (09:32→16:55)
[2023-03-06] MEDS: atorvastatin 40 mg Tablet 80 MG PO (09:32)
[2023-03-06] MEDS: clopidogrel 75 mg Tablet PO (09:32)
[2023-03-06] MEDS: tamsulosin 0.4 mg Capsule PO (09:32)
[2023-03-06] MEDS: heparin 5,000 unit/mL INJ 1 mL 5000 UNIT SUBCUT ×2 (09:32→21:05)
[2023-03-06] MEDS: escitalopram 10 mg Tablet PO (09:32)
[2023-03-06] MEDS: aspirin 325 mg Tablet PO (09:32)
[2023-03-06] MEDS: ondansetron 2 mg/ML SDV 2 mL 4 MG IVP (10:49)
[2023-03-06] MEDS: acetaminophen 650 mg/20.3 mL UDC 500 MG PO (15:25)
[2023-03-06] MEDS: artificial tears Op Soln 15 mL Btl 1 DROP EYE-RIGHT (16:54)
--- NOTE | 2023-03-06 20:00 | P.PN_ITS ---
Subjective Subjective: He is today slightly more awake. Worked with therapy. Up to chair. Still somewhat somnolent, not oriented. Otherwise pleasant, somewhat hard of hearing. Denies pain or discomfort. Vitals/I&O/Wt Last Vital Signs Temp 98.6 F 03/06/23 19:42 Pulse 66 03/06/23 19:53 Resp 16 03/06/23 19:42 BP 111/63 03/06/23 19:42 Pulse Ox 94 03/06/23 19:53 O2 Del Method 03/06/23 19:53 O2 Flow Rate 2 03/06/23 19:53 03/06/23 03/06/23 03/06/23 06:59 14:59 22:59 Intake Total 828.75 / 2050.00 746.25 / 746.25 240 / 986.25 Output Total 200 / 800 550 / 550 Balance 628.75 / 1250.00 196.25 / 196.25 240 / 436.25 Physical Exam Narrative: Accompanied by family, and daughter. Const: COMMON NORMALS: negative for patient oriented x3 GENERAL APPEARANCE: cooperative ORIENTATION/CONSCIOUSNESS: Yes awake HENMT: COMMON NORMALS: oropharynx normal Neck/C-Spine: COMMON NORMALS: no JVD Resp: COMMON NORMALS: normal respiratory effort and clear to auscultation bilaterally AUSCULTATION: clear to auscultation bilaterally Cardio: COMMON NORMALS: no JVD, regular rhythm, S1 normal heart sound present, S2 normal heart sound present and No murmurs present (Cardio) RHYTHM: regular rhythm HEART SOUNDS: S1 normal heart sound present and S2 normal heart sound present GI: COMMON NORMALS: Normal to inspection, nondistended, normoactive bowel sounds present, Soft to palpation and non-tender PALPATION: Yes Soft to palpation Extremity: COMMON NORMALS: no joint enlargement and no pedal edema Neuro: COMMON NORMALS: moves all extremities; negative for patient oriented x3 Skin: COMMON NORMALS: no rashes or lesions noted GENERAL SKIN EXAM: no rashes or lesions noted Urinary Catheter Management: Savage: Cath Placed During This Visit: yes, but has since been removed by the nurse Reason for Continuing Indwelling Catheter: Decision to DC Catheter Urinary Catheter Date of Insertion: 03/04/23 Urinary Catheter Time of Insertion: 18:40 Date Urinary Catheter Removed: 03/06/23 Time Urinary Catheter Discontinued: 14:00 Data 03/05/23 06:10 03/05/23 06:10 A&P Assessment and plan (1) Cerebrovascular accident: Acute left medial thalamic infarction with increased weakness, dysarthria, dysphagia, confusion/change in mental status He could not tolerate MRI. Subsequently with acute encephalopathy. Slightly better today, more alert. Worked with therapy. Case management working with family with regards to disposition planning with consideration of [facility] facility [facility]. Continue telemetry monitoring to assess for possibility of A-fib. (2) Lewy body dementia with behavioral disturbance: Chronically on Namenda (3) Hyperlipemia: Chronically on statin therapy (4) HTN (hypertension): Chronically on amlodipine, Lasix, metoprolol (5) Urinary retention: Partially pulled out Savage today. Savage removed. Urinated. Monitor for retention. Monitor for hematuria/clots. Continue antiplatelet medications for now. Continue Flomax. 1 L urine output with Savage catheter placement. Known to have prostatic hypertrophy and has had a previously mildly elevated PSA that has not trended upwards. Has seen Dr. Carrillo in the past. He has developed some hematuria that I believe is from Savage trauma. Urine is pinkish red-tinged presently. Plan Right eye crusting: Did not appreciate erythema today, but will reexamine. Add artificial tears for now. Attestations Medical Necessity Statement*: Continue admission following CVA, reassessment after urinary retention, patient self removal of Savage while needing antiplatelets. Diagnoses Cerebrovascular accident I63.9 Lewy body dementia with behavioral disturbance G31.83; F02.81 Hyperlipemia E78.5 HTN (hypertension) I10 Urinary retention R33.9
[2023-03-06] MEDS: pantoprazole 40 mg SDV IVP (21:06)
[2023-03-07] VITALS (10 sets, daily range): BP systolic 107–132; BP diastolic 62–73; PULSE 58–86; RESP 14–18; TEMP 36.4–37; O2SAT 91–99
[2023-03-07] MEDS: D5-NS 0.45% + KCL 20 mEq 20 MEQ/1,000 ML BAG 75 MEQ IV ×2 (00:49→14:10)
[2023-03-07] MEDS: heparin 5,000 unit/mL INJ 1 mL 5000 UNIT SUBCUT ×2 (10:30→20:09)
[2023-03-07] MEDS: morphine 10 mg/0.5 mL oral liq UD 5 MG PO (10:31)
[2023-03-07] MEDS: memantine 5 mg tablet 10 MG PO ×2 (10:31→18:35)
[2023-03-07] MEDS: tamsulosin 0.4 mg Capsule PO (10:31)
[2023-03-07] MEDS: clopidogrel 75 mg Tablet PO (10:31)
[2023-03-07] MEDS: atorvastatin 40 mg Tablet 80 MG PO (10:31)
[2023-03-07] MEDS: aspirin 325 mg Tablet PO (10:31)
[2023-03-07] MEDS: escitalopram 10 mg Tablet PO (10:31)
[2023-03-07] MEDS: artificial tears Op Soln 15 mL Btl 1 DROP EYE-RIGHT ×2 (10:35→18:38)
--- NOTE | 2023-03-07 12:35 | PC.SOCIAL ---
IMM Update pg 2 of IMM updated and reviewed w/ patient. Copy provided and Copy in chart dated, and initialed.
[2023-03-07] MEDS: pantoprazole 40 mg SDV IVP (20:08)
--- NOTE | 2023-03-07 22:05 | PM.PN ---
Subjective Subjective: Today he is doing slightly better. Earlier today he was complaining of pain in the back of his neck from uncomfortable sleep. During my visit there is no pain. He is opening his eyes better. Counts fingers. 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 Vitals/I&O/Wt Last Vital Signs Temp 97.6 F 03/07/23 19:30 Pulse 71 03/07/23 19:30 Resp 14 03/07/23 19:30 BP 120/65 03/07/23 19:30 Pulse Ox 94 03/07/23 19:30 O2 Del Method 03/07/23 19:30 O2 Flow Rate 2 03/07/23 07:29 03/07/23 03/07/23 03/07/23 06:59 14:59 22:59 Intake Total 592.5 / 1578.75 1120 / 1120 100 / 1220 Balance 592.5 / 1028.75 1120 / 1120 100 / 1220 Weight last 48 hrs Weight 68.039 kg Physical Exam Narrative: Accompanied by family, and daughter. Const: COMMON NORMALS: negative for patient oriented x3 GENERAL APPEARANCE: cooperative ORIENTATION/CONSCIOUSNESS: Yes awake HENMT: COMMON NORMALS: oropharynx normal Neck/C-Spine: COMMON NORMALS: no JVD Resp: COMMON NORMALS: normal respiratory effort and clear to auscultation bilaterally AUSCULTATION: clear to auscultation bilaterally Cardio: COMMON NORMALS: no JVD, regular rhythm, S1 normal heart sound present, S2 normal heart sound present and No murmurs present (Cardio) RHYTHM: regular rhythm HEART SOUNDS: S1 normal heart sound present and S2 normal heart sound present GI: COMMON NORMALS: Normal to inspection, nondistended, normoactive bowel sounds present, Soft to palpation and non-tender PALPATION: Yes Soft to palpation Extremity: COMMON NORMALS: no joint enlargement and no pedal edema Neuro: COMMON NORMALS: moves all extremities; negative for patient oriented x3 Skin: COMMON NORMALS: no rashes or lesions noted GENERAL SKIN EXAM: no rashes or lesions noted Urinary Catheter Management: Savage: Cath Placed During This Visit: yes, but has since been removed by the nurse Reason for Continuing Indwelling Catheter: Decision to DC Catheter Urinary Catheter Date of Insertion: 03/04/23 Urinary Catheter Time of Insertion: 18:40 Date Urinary Catheter Removed: 03/06/23 Time Urinary Catheter Discontinued: 14:00 Data 03/05/23 06:10 03/05/23 06:10 A&P Assessment and plan (1) Cerebrovascular accident: Today more alert. Counts fingers. 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 He is requiring assistance still, his is concerned about being able to manage things at home. Acute left medial thalamic infarction with increased weakness, dysarthria, dysphagia, confusion/change in mental status He could not tolerate MRI. Subsequently with acute encephalopathy. Slightly better today, more alert. Worked with therapy. Case management working with family with regards to disposition planning with consideration [facility]. Continue telemetry monitoring to assess for possibility of A-fib. Case management working with family regarding disposition planning and arrangements. (2) Lewy body dementia with behavioral disturbance: Chronically on Namenda (3) Hyperlipemia: Chronically on statin therapy (4) HTN (hypertension): Chronically on amlodipine, Lasix, metoprolol (5) Urinary retention: Partially pulled out Savage today. Savage removed. Urinated. Monitor for retention. Monitor for hematuria/clots. Continue antiplatelet medications for now. Continue Flomax. 1 L urine output with Savage catheter placement. Known to have prostatic hypertrophy and has had a previously mildly elevated PSA that has not trended upwards. Has seen Dr. Carrillo in the past. He has developed some hematuria that I believe is from Savage trauma. Urine is pinkish red-tinged presently. Plan Right eye crusting: No redness. No pain. Counts fingers without difficulty with left eye. 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 Artificial tears. Attestations Medical Necessity Statement*: Continue admission for assessment management following thalamic CVA, disposition planning and arrangements. Diagnoses Cerebrovascular accident I63.9 Lewy body dementia with behavioral disturbance G31.83; F02.81 Hyperlipemia E78.5 HTN (hypertension) I10 Urinary retention R33.9
[2023-03-08] VITALS (8 sets, daily range): BP systolic 124–159; BP diastolic 64–83; PULSE 58–85; RESP 15–18; TEMP 36.5–36.9; O2SAT 94–98
--- NOTE | 2023-03-08 07:11 | PC.NURSE ---
Previous IV had been removed by patient. New 22g IV had been placed by nurse, but called nurse to bedside and informed nurse that patient had removed it approximately 0700. Dayshift nurse was informed.
--- NOTE | 2023-03-08 07:27 | PC.NURSE ---
See patient chart for written documentation of rounding during downtime.
[2023-03-08] MEDS: atorvastatin 40 mg Tablet 80 MG PO (11:00)
[2023-03-08] MEDS: aspirin 325 mg Tablet PO (11:00)
[2023-03-08] MEDS: artificial tears Op Soln 15 mL Btl 1 DROP EYE-RIGHT ×2 (11:01→18:03)
[2023-03-08] MEDS: clopidogrel 75 mg Tablet PO (11:01)
[2023-03-08] MEDS: tamsulosin 0.4 mg Capsule PO (11:01)
[2023-03-08] MEDS: memantine 5 mg tablet 10 MG PO ×2 (11:01→18:03)
[2023-03-08] MEDS: heparin 5,000 unit/mL INJ 1 mL 5000 UNIT SUBCUT ×2 (11:01→20:36)
[2023-03-08] MEDS: escitalopram 10 mg Tablet PO (11:01)
--- NOTE | 2023-03-08 13:42 | PC.OT ---
OT TREATMENT ATTEMPTED. PATIENT IN BED SLEEPING SOUNDLY. REQUESTS THAT I LET HIM REST.
--- NOTE | 2023-03-08 15:48 | PC.OT ---
OT TREATMENT ATTEMPTED AGAIN THIS AFTERNOON. PATIENT CONTINUES TO SLEEP SOUNDLY. WILL ATTEMPT AGAIN TOMORROW.
[2023-03-08] MEDS: ciprofloxacin 0.3% Op Soln 2.5 mL Btl 1 DROP EYE-LEFT (18:02)
--- NOTE | 2023-03-08 22:11 | P.PN_ITS ---
Subjective Subjective: Today slight pink discoloration of his left eye. He denies pain. Able to count fingers without noted worsening in his vision. Vitals/I&O/Wt Last Vital Signs Temp 97.8 F 03/08/23 19:44 Pulse 69 03/08/23 19:44 Resp 16 03/08/23 19:44 BP 143/68 03/08/23 19:44 Pulse Ox 96 03/08/23 19:44 O2 Del Method Room Air 03/08/23 19:44 O2 Flow Rate 2 03/07/23 07:29 03/08/23 03/08/23 03/08/23 06:59 14:59 22:59 Intake Total 1600 / 1600 120 / 1720 Balance 1600 / 1600 120 / 1720 Weight last 48 hrs Weight 68.039 kg Physical Exam Narrative: Accompanied by Const: COMMON NORMALS: negative for patient oriented x3 GENERAL APPEARANCE: cooperative ORIENTATION/CONSCIOUSNESS: Yes awake HENMT: COMMON NORMALS: oropharynx normal OTHER: Minimal pink discoloration left eye Neck/C-Spine: COMMON NORMALS: no JVD Resp: COMMON NORMALS: normal respiratory effort and clear to auscultation bilaterally AUSCULTATION: clear to auscultation bilaterally Cardio: COMMON NORMALS: no JVD, regular rhythm, S1 normal heart sound present, S2 normal heart sound present and No murmurs present (Cardio) RHYTHM: regular rhythm HEART SOUNDS: S1 normal heart sound present and S2 normal heart sound present GI: COMMON NORMALS: Normal to inspection, nondistended, normoactive bowel sounds present, Soft to palpation and non-tender PALPATION: Yes Soft to p alpation Extremity: COMMON NORMALS: no joint enlargement and no pedal edema Neuro: COMMON NORMALS: moves all extremities; negative for patient oriented x3 Skin: COMMON NORMALS: no rashes or lesions noted GENERAL SKIN EXAM: no rashes or lesions noted Urinary Catheter Management: Savage: Cath Placed During This Visit: yes, but has since been removed by the nurse Reason for Continuing Indwelling Catheter: Decision to DC Catheter Urinary Catheter Date of Insertion: 03/04/23 Urinary Catheter Time of Insertion: 18:40 Date Urinary Catheter Removed: 03/06/23 Time Urinary Catheter Discontinued: 14:00 Data 03/05/23 06:10 03/05/23 06:10 A&P Assessment and plan (1) Cerebrovascular accident: Hospital for without worsening symptoms. Continue aspirin, Plavix, statin. Requires significant assistance with ADLs. Would benefit from rehabilitation. This is being worked on by case management with his family. Acute left medial thalamic infarction with increased weakness, dysarthria, dysphagia, confusion/change in mental status He could not tolerate MRI. Subsequently with acute encephalopathy. Slightly better today, more alert. Worked with therapy. Case management working with family with regards to disposition planning with consideration of group home facility discharge. Continue telemetry monitoring to assess for possibility of A-fib. Case management working with family regarding disposition planning and arrangements. (2) Lewy body dementia with behavioral disturbance: Chronically on Namenda (3) Hyperlipemia: Chronically on statin therapy (4) HTN (hypertension): Chronically on amlodipine, Lasix, metoprolol (5) Urinary retention: Partially pulled out Savage today. Savage removed. Urinated. Monitor for retention. Monitor for hematuria/clots. Continue antiplatelet medications for now. Continue Flomax. 1 L urine output with Savage catheter placement. Known to have prostatic hypertrophy and has had a previously mildly elevated PSA that has not trended upwards. Has seen Dr. Carrillo in the past. He has developed some hematuria that I believe is from Savage trauma. Urine is pinkish red-tinged presently. Plan Left eye conjunctivitis: Minimal pink discoloration today. Discussed with his , add Cipro drops. No pain. Counts fingers without difficulty with left eye. 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 Artificial tears. Attestations Medical Necessity Statement*: Continue admission for assessment management following thalamic CVA, disposition planning and arrangements. Diagnoses Cerebrovascular accident I63.9 Lewy body dementia with behavioral disturbance G31.83; F02.81 Hyperlipemia E78.5 HTN (hypertension) I10 Urinary retention R33.9
[2023-03-09] MEDS: ciprofloxacin 0.3% Op Soln 2.5 mL Btl 1 DROP EYE-LEFT ×2 (00:42→09:24)
[2023-03-09 03:57] VITALS: BP 147/82; PULSE 80; RESP 16; TEMP 36.7; O2SAT 95
[2023-03-09 07:46] VITALS: BP 120/69; PULSE 75; RESP 16; TEMP 36.6; O2SAT 96
[2023-03-09] MEDS: atorvastatin 40 mg Tablet 80 MG PO (08:48)
[2023-03-09] MEDS: aspirin 325 mg Tablet PO (08:48)
[2023-03-09] MEDS: clopidogrel 75 mg Tablet PO (08:48)
[2023-03-09] MEDS: tamsulosin 0.4 mg Capsule PO (08:48)
[2023-03-09] MEDS: memantine 5 mg tablet 10 MG PO (08:48)
[2023-03-09] MEDS: escitalopram 10 mg Tablet PO (08:48)
[2023-03-09] MEDS: heparin 5,000 unit/mL INJ 1 mL 5000 UNIT SUBCUT (08:48)
[2023-03-09] MEDS: artificial tears Op Soln 15 mL Btl 1 DROP EYE-RIGHT (09:24)
[2023-03-09 09:36] LABS: SARS Covid-2 Antigen negative (Negative)
--- NOTE | 2023-03-09 10:20 | PM.DCS ---
Discharge Providers Date of Admission: 03/04/23 19:19 Date of Discharge: March 09, 2023 Attending Provider at Admission: Gail Cheung MD Attending Provider at Discharge: Noe Vidal Primary Care Provider: Shabbir Moran MD Diagnoses at Discharge Discharge Diagnosis (1) Cerebrovascular accident: Status: Acute (2) Lewy body dementia with behavioral disturbance: Status: Acute (3) Hyperlipemia: Status: Acute (4) HTN (hypertension): Status: Acute (5) Urinary retention: Status: Acute Reason for Visit Reason for Visit: stroke symptoms Hospital Course Hospital Course 83-year-old gentleman with history of Lewy body dementia, was brought in for evaluation due to acting differently at home, speech difficulty, confusion and new swallowing issues. CT head showed thalamic infarction. He could not tolerate MRI. During hospitalization acute encephalopathy following his stroke, initially lethargy, minimally responsive, but gradually improved. Abnormal rhythm, questionable atrial fibrillation one of the EKGs. He is continued on aspirin, 21-day course of Plavix, statin escalated to high intensity. High risk of fall/injury for anticoagulation. 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 Course of ciprofloxacin given for bacterial conjunctivitis with crusting of the left eyelids, pink conjunctiva discoloration. Echocardiogram with normal EF, grade 1 diastolic function, trace AVR, mild TVR. Head and neck CTA without large vessel occlusion or high-grade stenosis and negative CT of the neck. He is asked to follow-up with neurology. During hospitalization also with transient urinary retention. UA not suggestive of UTI. Had Savage catheter temporarily, but pulled it out partially and it had to be removed. Has been urinating without issue since and without hematuria. Monitor for retention. Referred to urology in case of any difficulties. Continues on Flomax. Assessed by speech therapy with finding of dysphagia, recommendation for low-dose of dysphagia diet to be continued. Aspiration precautions. As he has quite significant OT needs additional rehabilitation at SNF was sought and he is currently accepted. Maintain fall precautions. At risk of wandering. Physical Exam Narrative: Sitting up in the chair Accompanied by and daughter Const: COMMON NORMALS: negative for patient oriented x3 GENERAL APPEARANCE: cooperative ORIENTATION/CONSCIOUSNESS: Yes awake HENMT: COMMON NORMALS: oropharynx normal OTHER: Minimal pink discoloration left eye now nearly resolved Neck/C-Spine: COMMON NORMALS: no JVD Resp: COMMON NORMALS: normal respiratory effort and clear to auscultation bilaterally AUSCULTATION: clear to auscultation bilaterally Cardio: COMMON NORMALS: no JVD, regular rhythm, S1 normal heart sound present, S2 normal heart sound present and No murmurs present (Cardio) RHYTHM: regular rhythm HEART SOUNDS: S1 normal heart sound present and S2 normal heart sound present GI: COMMON NORMALS: Normal to inspection, nondistended, normoactive bowel sounds present, Soft to palpation and non-tender PALPATION: Yes Soft to palpation Extremity: COMMON NORMALS: no joint enlargement and no pedal edema Neuro: COMMON NORMALS: moves all extremities; negative for patient oriented x3 Skin: COMMON NORMALS: no rashes or lesions noted GENERAL SKIN EXAM: no rashes or lesions noted Urinary Catheter Management: Savage: Cath Placed During This Visit: yes, but has since been removed by the nurse Reason for Continuing Indwelling Catheter: Decision to DC Catheter Urinary Catheter Date of Insertion: 03/04/23 Urinary Catheter Time of Insertion: 18:40 Date Urinary Catheter Removed: 03/06/23 Time Urinary Catheter Discontinued: 14:00 Discharge Data Studies Completed and Pending Completed Studies During Hospitalization Category Date Time Status CT angio headneck* [id number] Stat Cat Scan 03/04/23 17:59 Completed CXRP [XR chest 1V portable [id number]] Stat Exams 03/04/23 17:59 Completed CV. echo complete* [id number] Routine Ultrasound 03/05/23 06:00 Completed Radiology Impressions Chest X-Ray 03/04/23 17:59 IMPRESSION: No acute findings. Head/Neck CTA 03/04/23 17:59 IMPRESSION: 1. New region of hypodensity in the left medial thalamus suspicious for acute or subacute ischemia. This can be confirmed with MRI for follow-up. 2. No large vessel occlusion or high-grade stenosis. IMPRESSION: Negative CTA of the neck. REFERENCES: NASCET CRITERIA. The degree of stenosis in the cervical segment of the internal carotid artery is based on NASCET criteria. Normal is no stenosis. Mild is less than 50% stenosis. Moderate is 50-69% stenosis. Severe is 70% to 99% stenosis. Total occlusion is no detectable patent lumen. ADDENDUM: 03/04/23 [id number] THIS REPORT CONTAINS FINDINGS THAT MAY BE CRITICAL TO PATIENT CARE. The findings were verbally communicated via telephone conference with LARRY Mace at 6:48 PM CDT on 03/04/2023. The findings were acknowledged and understood. Laboratory Results WBC 10.2 10^3/uL (4.0-10.0) H 03/05/23 06:10 Corrected WBC Cancelled 03/05/23 05:42 RBC 4.34 10^6/uL (4.1-5.3) 03/05/23 06:10 Hgb 13.0 g/dL (11.7-16.6) 03/05/23 06:10 Hct 42.3 % (42.0-52.0) 03/05/23 06:10 MCV 97.5 fl (80-94) H 03/05/23 06:10 MCH 30.0 pg (28.0-34.0) 03/05/23 06:10 MCHC 30.7 g/dL (30.0-36.0) 03/05/23 06:10 RDW 11.9 % (12.1-15.1) L 03/05/23 06:10 Plt Count 205 10^3/cmm (130-400) 03/05/23 06:10 MPV 9.3 fL (7.4-10.4) 03/05/23 06:10 Gran % Cancelled 03/05/23 05:42 Neut % (Auto) 75.2 % 03/05/23 06:10 Lymph % (Auto) 12.0 % 03/05/23 06:10 [place] % (Auto) 10.2 % 03/05/23 06:10 Eos % (Auto) 1.9 % 03/05/23 06:10 Baso % (Auto) 0.4 % 03/05/23 06:10 Neut # (Auto) 7.66 10^3/uL (1.8-7.7) 03/05/23 06:10 Lymph # (Auto) 1.2 10^3/uL (0.8-4.8) 03/05/23 06:10 [place] # (Auto) 1.0 10^3/uL (0.2-0.9) H 03/05/23 06:10 Eos # (Auto) 0.2 10^3/uL (0.0-0.8) 03/05/23 06:10 Baso # (Auto) 0.0 10^3/uL (0.0-0.1) 03/05/23 06:10 Absolute Gran (auto) Cancelled 03/05/23 05:42 Nucleated RBC % (auto) 0 % 03/05/23 06:10 Nucleated RBCs # 0.0 /100WBC 03/05/23 06:10 PT 14.60 SECONDS (12.1-14.9) 03/04/23 18:28 INR 1.10 (0.8-1.2) 03/04/23 18:28 APTT 23.1 SECONDS (23.9-36.7) L 03/04/23 18:28 Specimen Type Arterial 03/04/23 22:00 Sample Site Radial, right 03/04/23 22:00 ABG pH 7.35 (7.35-7.45) 03/04/23 22:00 ABG pCO2 55.9 mmHg (35-45) H 03/04/23 22:00 ABG pO2 104.0 mmHg (80.0-100.0) H 03/04/23 22:00 ABG HCO3 31.0 mmol/L (22-26) H 03/04/23 22:00 ABG Base Excess 3.9 mmol/L (-2.0-2.0) H 03/04/23 22:00 Hong Test Pos 03/04/23 22:00 Hematocrit 42.9 % (42-52) 03/04/23 22:00 O2 Delivery Device Nc 03/04/23 22:00 O2 Liters/Min 2.0 % 03/04/23 22:00 Intelligence Officer Basic ID Rory 03/04/23 22:00 Sodium 135 mmol/L (136-145) L 03/05/23 06:10 Potassium 3.9 mmol/L (3.5-5.1) 03/05/23 06:10 Chloride 97 mmol/L (98-107) L 03/05/23 06:10 Carbon Dioxide 25 mmol/L (22-29) 03/05/23 06:10 Anion Gap 16.9 (5-19) 03/05/23 06:10 BUN 21 mg/dL (8-23) 03/05/23 06:10 Creatinine 1.2 mg/dL (0.7-1.2) 03/05/23 06:10 GFR Calculation Not Reportable 03/05/23 06:10 Glucose 86 mg/dL (65-115) 03/05/23 06:10 POC Glucose 138 mg/dL (70-110) H 03/04/23 18:31 Estimat Average Glucose 117 03/04/23 18:28 Hemoglobin A1c 5.7 % (4.0-6.0) 03/04/23 18:28 Calculated Osmolality 282 mOsm/kg (285-295) L 03/05/23 06:10 Lactate 0.9 mmol/L (0.5-2.2) 03/04/23 20:36 Calcium 8.5 mg/dL (8.5-10.5) 03/05/23 06:10 Magnesium 2.1 mg/dL (1.7-2.3) 03/05/23 06:10 Total Bilirubin 0.6 mg/dL (0.15-1.2) 03/04/23 18:28 AST 10 U/L (0-40) 03/04/23 18:28 ALT < 5 U/L (0-41) 03/04/23 18:28 Alkaline Phosphatase 95 U/L (40-130) 03/04/23 18:28 Total Protein 6.5 g/dL (6.6-8.7) L 03/04/23 18:28 Albumin 3.8 g/dL (3.5-5.2) 03/04/23 18:28 Globulin 2.7 g/dL (1.3-4.6) 03/04/23 18:28 Triglycerides 94 mg/dL (0-150) 03/04/23 18:28 Cholesterol 151 mg/dL (0-200) 03/04/23 18:28 LDL Cholesterol, Calc 90 mg/dL (50-129) 03/04/23 18:28 HDL Cholesterol 42 mg/dL (60-100) L 03/04/23 18:28 LDL/HDL Ratio 2.14 RATIO (0.00-3.22) 03/04/23 18:28 Cholesterol/HDL Ratio 3.60 mg/dL (1.0-5.00) 03/04/23 18:28 TSH 1.27 uIU/mL (0.27-4.20) 03/04/23 18:28 Urine Color Yellow (Yellow) 03/04/23 18:45 Urine Appearance Clear (CLEAR) 03/04/23 18:45 Urine pH 6 (5-7) 03/04/23 18:45 Ur Specific [place] 1.010 (1.005-1.030) 03/04/23 18:45 Urine Protein Neg (Negative) 03/04/23 18:45 Urine Glucose (UA) Norm (Normal) 03/04/23 18:45 Urine Ketones Negative (Negative) 03/04/23 18:45 Urine Blood 2+ (Negative) H 03/04/23 18:45 Urine Nitrate Negative (Negative) 03/04/23 18:45 Urine Bilirubin Neg (Negative) 03/04/23 18:45 Urine Urobilinogen Norm mg/dL (Negative) 03/04/23 18:45 Ur Leukocyte Esterase Negative (Negative) 03/04/23 18:45 Urine RBC 0-4 /hpf (0-2) H 03/04/23 18:45 Urine WBC None /hpf (0-5) 03/04/23 18:45 Ur Squamous Epith Cells None /hpf (0-5) 03/04/23 18:45 Amorphous Sediment Not Reportable 03/04/23 18:45 Urine Bacteria Trace /hpf (NONE) 03/04/23 18:45 Urine Mucus 2+ /hpf 03/04/23 18:45 Urine Opiates Screen Negative ng/mL (Negative) 03/04/23 18:45 Ur Barbiturates Screen Negative ng/mL (Negative) 03/04/23 18:45 Ur Phencyclidine Scrn Negative ng/mL (Negative) 03/04/23 18:45 Ur Amphetamines Screen Negative ng/mL (Negative) 03/04/23 18:45 U Benzodiazepines Scrn Negative ng/mL (Negative) 03/04/23 18:45 Urine Cocaine Screen Negative ng/mL (Negative) 03/04/23 18:45 U Marijuana (THC) Screen Negative ng/mL (Negative) 03/04/23 18:45 SARS-CoV-2 Ag (Rapid) negative (Negative) 03/09/23 09:00 Vitals Last Vital Signs Temp 97.9 F 03/09/23 07:46 Pulse 75 03/09/23 07:46 Resp 16 03/09/23 07:46 BP 120/69 03/09/23 07:46 Pulse Ox 96 03/09/23 07:46 O2 Del Method Room Air 03/09/23 08:00 O2 Flow Rate 3 03/08/23 20:00 Discharge Plan Discharge Patient Disposition: Xfer SNF Condition: Stable Prescriptions: New ciprofloxacin HCl 0.3 % Drops 1 drp eye-left QID 4 Days Qty: 2.5 0RF aspirin 325 mg Tablet 325 mg PO DAILY Qty: 90 0RF atorvastatin 40 mg Tablet 80 mg PO DAILY Qty: 90 0RF clopidogrel 75 mg Tablet 75 mg PO DAILY Qty: 21 0RF Continued furosemide 20 mg tablet 40 mg PO DAILY albuterol sulfate [Ventolin HFA] 90 mcg/actuation HFA aerosol inhaler 2 puff inhalation Q6H PRN (Reason: shortness of breath or wheezing) Qty: 8.5 11RF nystatin 100,000 unit/gram powder 1 applic topical BID Qty: 30 4RF terbinafine HCl [Lamisil AT] 1 % cream 1 applic topical BID Qty: 30 2RF Rx Instructions: apply to feet bid escitalopram oxalate 10 mg tablet See Rx Instructions .ROUTE .COMPLEX Qty: 90 3RF Dose Instruction: TAKE 1 TABLET EVERY DAY FOR 90 DAYS Rx Instructions: TAKE 1 TABLET EVERY DAY FOR 90 DAYS memantine 10 mg tablet See Rx Instructions .ROUTE .COMPLEX Qty: 180 11RF Dose Instruction: TAKE 1 TABLET TWICE DAILY Rx Instructions: TAKE 1 TABLET TWICE DAILY metoprolol tartrate 25 mg tablet See Rx Instructions .ROUTE .COMPLEX Qty: 180 11RF Dose Instruction: TAKE 1 TABLET TWICE DAILY Rx Instructions: TAKE 1 TABLET TWICE DAILY tamsulosin 0.4 mg capsule See Rx Instructions .ROUTE .COMPLEX Qty: 90 11RF Dose Instruction: TAKE 1 CAPSULE EVERY DAY Rx Instructions: TAKE 1 CAPSULE EVERY DAY Changed amlodipine 5 mg tablet 5 mg PO DAILY PRN (Reason: Hypertension) Qty: 30 11RF Rx Instructions: SBP >150, DBP >90 Discontinued simvastatin 20 mg tablet See Rx Instructions .ROUTE .COMPLEX Qty: 90 3RF Dose Instruction: TAKE 1 TABLET EVERY DAY FOR HYPERLIPIDEMIA Rx Instructions: TAKE 1 TABLET EVERY DAY FOR HYPERLIPIDEMIA Discharge Orders: Discharge Order (Routine); Ordered 03/09/23 Ordered By: Noe Vidal Referrals: NEUROSCIENCE PROVIDERS [Provider Group] - 7-10 days [facility] [Outside] Shabbir Moran MD [Primary Care Provider] - 4-7 days Discharge Diet: As Directed and Cardiac Discharge Activity: Limit activity as instructed and As per PT/OT instructions Patient Instructions: Stroke (DC) Activity Restrictions/Additional Instructions: Due to dementia strict fall precautions, at risk of wandering. Dysphagia level 6 diet soft and bite-size. Aspiration precautions. Follow-up with neurology regarding thalamic CVA. Complete course of eyedrops for left eye conjunctivitis. Monitor for any urine retention, had urine retention in the hospital requiring Savage transiently. Partially pulled Savage out and had to be removed. In case of urinary difficulties refer to urology. Discharge Attestations Time Spent in Discharge Care*: greater than 30 min Quality Metrics Clinical Quality Measures [ Cerebrovascular Accident { Contraindication to Antithrombotic: None; antithrombotic prescribed; Contraindication to Anticoagulation: Medical contraindication; Contraindication to Statin: None; Statin prescribed;}] Coding Level of Care Code Acute Code for g Fwd Diagnoses Cerebrovascular accident I63.9 Lewy body dementia with behavioral disturbance G31.83; F02.81 Hyperlipemia E78.5 HTN (hypertension) I10 Urinary retention R33.9
--- NOTE | 2023-03-09 10:46 | PC.SOCIAL ---
IMM Update pg 2 of IMM updated and reviewed w/ patient. Copy provided and copy in chart dated, and initialed.
--- NOTE | 2023-03-09 11:55 | PC.NURSE ---
REPORT CALLED TO RIGO MARROQUIN. PATIENT TRANSPORTED VIA [facility].
[2023-03-09 11:56] VITALS: BP 120/69; PULSE 75; RESP 16; TEMP 36.6; O2SAT 96
== END 2023-03-09 11:56 | disposition skilled nursing facility (03) | DRG 65 ==
LOC: ER 20:03 → MEDSURG 20:45
PROVIDERS: Admitting Provider Internal Medicine; Emergency Provider Emergency Medicine; PCP Family Medicine; Visit Provider Internal Medicine
DX: I63.9 Cerebral infarction, unspecified (principal); F02.818 Dementia in other diseases classified elsewhere, unspecified severity, with other behavioral disturbance; G93.49 Other encephalopathy; G81.94 Hemiplegia, unspecified affecting left nondominant side; G31.83 Neurocognitive disorder with Lewy bodies; R47.81 Slurred speech; R13.10 Dysphagia, unspecified; R47.1 Dysarthria and anarthria; H54.61 Unqualified visual loss, right eye, normal vision left eye; E78.5 Hyperlipidemia, unspecified; I10 Essential (primary) hypertension; N40.1 Benign prostatic hyperplasia with lower urinary tract symptoms; R33.9 Retention of urine, unspecified; H10.89 Other conjunctivitis; R29.708 NIHSS score 8; Z66 Do not resuscitate; Z91.81 History of falling; Z86.73 Personal history of transient ischemic attack (TIA), and cerebral infarction without residual deficits; Z87.891 Personal history of nicotine dependence
CPT/HCPCS: 36415; 36416; 36600; 51702; 70496; 70498; 71045; 80048; 80053; 80061; 80306; 81001; 82803; 82962; 83036; 83605; 83735; 84443; 85025; 85610; 85730; 87426; 92507; 92523; 92526; 92610; 93005; 93306; 96372; 96374; 97110; 97116; 97161; 97167; 97530; 97535; 99285; C9113; J1644; J2405; J7030; Q9967

== ENCOUNTER 2023-03-21 18:37 | Observation (INO) | payer MEDICARE, SELFPAY ==
[2023-03-21] VITALS (22 sets, daily range): BP systolic 103–132; BP diastolic 64–86; PULSE 91; RESP 16; TEMP 36.4; O2SAT 93–96
--- NOTE | 2023-03-21 18:47 | W.ED.AMS ---
HPI - Altered Mental Status General: Chief Complaint: Altered Mental Status Stated Complaint: Stroke-Like Symptoms Time Seen by Provider: 03/21/23 18:47 Limitations: altered mental status History of Present Illness: Mr. Fermin is an 83-year-old gentleman with significant past medical history of recent stroke presenting to the emergency department for mental status change and facial trauma. The patient himself is a poor historian. Per family at bedside he seemed okay yesterday however had a small bruise on his forehead and his left hand. Today the bruise seemed larger in the right medial periorbital region and patient apparently seemed more confused during dinner. Review of Systems General: Reports: ROS unobtainable due to mental status PFSH ED PFSH: Medical History Dementia Elevated PSA HTN (hypertension) Hyperlipemia Lewy body dementia with behavioral disturbance TIA (transient ischemic attack) Family History Mother Diabetes Father CHF (congestive heart failure) Other CAD (coronary artery disease) Stroke Social History Smoking and tobacco status: former smoker Alcohol intake: current Alcohol intake frequency: holidays/special occasions only Substance/Drug Use: unknown Adopted: No Caregiver/support person: No Lives independently: No Household members: spouse Marital status: Current occupational status: retired Current gender identity: Male Physical Exam Const: COMMON NORMALS: alert GENERAL APPEARANCE: cooperative and well developed HENMT: COMMON NORMALS: normocephalic HEAD & SCALP: normocephalic THROAT: posterior oropharynx normal OTHER: Right periorbital ecchymosis more medially along the nasal bridge. No kelley signs or raccoon eyes. No hemotympanum. No otorrhea or rhinorrhea. Jaw alignment normal. Dentition baseline. No obvious bony step-offs. No septal hematoma. No evidence of ocular entrapment. Eye: COMMON NORMALS: conjunctivae normal CONJUNCTIVA: Yes conjunctivae normal SCLERA: sclerae normal Neck/C-Spine: COMMON NORMALS: supple GENERAL: Yes trachea midline Resp: COMMON NORMALS: clear to auscultation bilaterally EFFORT & INSPECTION: Yes able to speak in complete sentences AUSCULTATION: clear to auscultation bilaterally Cardio: COMMON NORMALS: regular rate and regular rhythm RATE: regular rate RHYTHM: regular rhythm GI: COMMON NORMALS: Soft to palpation PALPATION: Yes Soft to palpation and No Tenderness to palpation present (GI) Extremity: GENERAL: Yes normal exam except as noted and No edema Neuro: COMMON NORMALS: moves all extremities SENSORIUM/ORIENTATION: Yes alert and Yes Orientation impaired Psych: MEMORY/COGNITION: Yes memory grossly impaired Course Vital Signs: Vital signs: Vital Signs Temperature 97.6 F 03/29/23 11:48 Pulse Rate 64 03/29/23 16:21 Respiratory Rate 16 03/29/23 16:21 Blood Pressure 144/95 03/29/23 16:21 Pulse Oximetry 94 03/29/23 16:21 Oxygen Delivery Me thod Room Air 03/29/23 15:22 MDM - Altered Mental Status Medical Decision Making 83-year-old gentleman with recent stroke discharged to [facility] presenting to the emergency department for head trauma and possible change in mental status. Patient does have impaired memory. Head to toe exam performed. EKG demonstrates sinus rhythm with normal axis and intervals, nonspecific ST segment abnormalities, septal Q waves, no STEMI. Labs notable for leukocytosis, normal hemoglobin and platelet count. Compensated ABG with mild hypoxemia and minimal hypercapnia. Metabolic panel without clear explanation for changes. Urinalysis with hematuria. Head CT negative for acute pathology. Face CT negative for bony fracture. Cervical spine with no acute fracture. Chest x-ray with no lobar consolidation or pneumothorax. CT abdomen pelvis negative for acute traumatic injury, patient does have incidental findings which were discussed. Patient treated with IV fluids. Most likely etiology of patient's symptoms are unclear, unspecified altered mental status. The results of ED evaluation were discussed with the patient and family including plan for admission due to requirement for level of care not available if discharged to prevent significant worsening/deterioration. Patient agreeable with plan. Discussed with hospitalist service who was agreeable to admit patient. Medical Records I reviewed the patient's medical records. Lab Data I reviewed the patient's lab results. 03/27/23 06:00 03/27/23 06:00 Radiology Impressions Abdomen/Pelvis CT 03/21/23 18:52 IMPRESSION: 1. Negative for traumatic injury to the abdomen or pelvis. 2. Coronary artery atherosclerotic calcifications. 3. Emphysematous changes. 4. Constipation. 5. 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 6. 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 Cervical Spine CT 03/21/23 18:52 IMPRESSION: No acute findings. Chest X-Ray 03/21/23 18:52 IMPRESSION: No acute findings. Face CT 03/21/23 18:52 IMPRESSION: No acute bony findings. Finger X-Ray 03/21/23 18:52 IMPRESSION: No acute findings. Head CT 03/21/23 18:52 IMPRESSION: No acute intracranial abnormality. Laboratory Results WBC 12.9 10^3/uL (4.0-10.0) H 03/21/23 19:03 RBC 4.88 10^6/uL (4.1-5.3) 03/21/23 19:03 Hgb 14.3 g/dL (11.7-16.6) 03/21/23 19:03 Hct 44.8 % (42.0-52.0) 03/21/23 19:03 MCV 91.8 fl (80-94) 03/21/23 19:03 MCH 29.3 pg (28.0-34.0) 03/21/23 19:03 MCHC 31.9 g/dL (30.0-36.0) 03/21/23 19:03 RDW 12.1 % (12.1-15.1) 03/21/23 19:03 Plt Count 388 10^3/cmm (130-400) 03/21/23 19:03 MPV 8.8 fL (7.4-10.4) 03/21/23 19:03 Neut % (Auto) 78.1 % 03/21/23 19:03 Lymph % (Auto) 10.7 % 03/21/23 19:03 [place] % (Auto) 7.6 % 03/21/23 19:03 Eos % (Auto) 2.8 % 03/21/23 19:03 Baso % (Auto) 0.3 % 03/21/23 19:03 Neut # (Auto) 10.07 10^3/uL (1.8-7.7) H 03/21/23 19:03 Lymph # (Auto) 1.4 10^3/uL (0.8-4.8) 03/21/23 19:03 [place] # (Auto) 1.0 10^3/uL (0.2-0.9) H 03/21/23 19:03 Eos # (Auto) 0.4 10^3/uL (0.0-0.8) 03/21/23 19:03 Baso # (Auto) 0.0 10^3/uL (0.0-0.1) 03/21/23 19:03 Nucleated RBC % (auto) 0 % 03/21/23 19:03 Nucleated RBCs # 0.0 /100WBC 03/21/23 19:03 Specimen Type Arterial 03/21/23 22:30 Sample Site Radial, right 03/21/23 22:30 ABG pH 7.42 (7.35-7.45) 03/21/23 22:30 ABG pCO2 45.7 mmHg (35-45) H 03/21/23 22:30 ABG pO2 72.8 mmHg (80.0-100.0) L 03/21/23 22:30 ABG HCO3 29.5 mmol/L (22-26) H 03/21/23 22:30 ABG Base Excess 4.3 mmol/L (-2.0-2.0) H 03/21/23 22:30 Hong Test Pos 03/21/23 22:30 Hematocrit 37.4 % (42-52) L 03/21/23 22:30 O2 Delivery Device None 03/21/23 22:30 FiO2 21.0 % 03/21/23 22:30 Spaghetti Machine Operator ID [email or web address] 03/21/23 22:30 Sodium 143 mmol/L (136-145) 03/21/23 19:03 Potassium 3.5 mmol/L (3.5-5.1) 03/21/23 19:03 Chloride 98 mmol/L (98-107) 03/21/23 19:03 Carbon Dioxide 31 mmol/L (22-29) H 03/21/23 19:03 Anion Gap 17.5 (5-19) 03/21/23 19:03 BUN 27 mg/dL (8-23) H 03/21/23 19:03 Creatinine 1.2 mg/dL (0.7-1.2) 03/21/23 19:03 GFR Calculation Not Reportable 03/21/23 19:03 Glucose 103 mg/dL (65-115) 03/21/23 19:03 POC Glucose 93 mg/dL (70-110) 03/21/23 22:22 Calculated Osmolality 301 mOsm/kg (285-295) H 03/21/23 19:03 Calcium 9.0 mg/dL (8.5-10.5) 03/21/23 19:03 Total Bilirubin 0.6 mg/dL (0.15-1.2) 03/21/23 19:03 AST 18 U/L (0-40) 03/21/23 19:03 ALT 13 U/L (0-41) 03/21/23 19:03 Alkaline Phosphatase 99 U/L (40-130) 03/21/23 19:03 Troponin T Baseline 20 ng/L (0-15) H 03/21/23 23:22 C-Reactive Protein 57.5 mg/L (0.0-4.9) H 03/21/23 23:22 Total Protein 7.8 g/dL (6.6-8.7) 03/21/23 19:03 Albumin 4.2 g/dL (3.5-5.2) 03/21/23 19:03 Globulin 3.6 g/dL (1.3-4.6) 03/21/23 19:03 Procalcitonin 0.06 ng/mL (0-0.5) 03/21/23 23:22 Urine Color Yellow (Yellow) 03/21/23 21:25 Urine Appearance Sl hazy (CLEAR) A 03/21/23 21:25 Urine pH 5 (5-7) 03/21/23 21:25 Ur Specific [place] 1.020 (1.005-1.030) 03/21/23 21:25 Urine Protein 1+ (Negative) H 03/21/23 21:25 Urine Glucose (UA) Norm (Normal) 03/21/23 21:25 Urine Ketones 1+ (Negative) H 03/21/23 21:25 Urine Blood 3+ (Negative) H 03/21/23 21:25 Urine Nitrate Negative (Negative) 03/21/23 21:25 Urine Bilirubin Neg (Negative) 03/21/23 21:25 Prot Sulfosalicylic Acd Cancelled 03/21/23 20:23 Urine Urobilinogen 1 mg/dL (Negative) H 03/21/23 21:25 Ur Leukocyte Esterase Negative (Negative) 03/21/23 21:25 Urine RBC 25-40 /hpf (0-2) H 03/21/23 21:25 Urine WBC None /hpf (0-5) 03/21/23 21:25 Ur Squamous Epith Cells None /hpf (0-5) 03/21/23 21:25 Amorphous Sediment Not Reportable 03/21/23 21:25 Urine Bacteria None /hpf (NONE) 03/21/23 21:25 Urine Mucus 1+ /hpf 03/21/23 21:25 Discharge Plan Discharge Patient Disposition: Placed in Observation Admit Provider: Gail Cheung Clinical Impression: Altered mental status Discharge Diet: As Directed and Cardiac Discharge Activity: Resume usual activity Coding Level of Care Code ED Cracker Dough Mixer for Sarah Gomez
--- NOTE | 2023-03-21 18:52 | CTR_ITS ---
PROCEDURE INFORMATION: Exam: CT Cervical Spine Without Contrast Exam date and time: 03/21/2023 7:23 PM Age: 83 years old Clinical indication: Injury or trauma; Fall; Blunt trauma; Additional info: Fall, head injury, AMS TECHNIQUE: Imaging protocol: Computed tomography of the cervical spine without contrast. Radiation optimization: All CT scans at this facility use at least one of these dose optimization techniques: automated exposure control; mA and/or kV adjustment per patient size (includes targeted exams where dose is matched to clinical indication); or iterative reconstruction. REPORTING DATA: Count of CT and Cardiac NM exams in prior 12 months: This patient has received [address] and 0 known cardiac nuclear medicine studies in the 12 months prior to the current study. COMPARISON: CT cervical spin wo con* [id number] 07/01/2018 12:00 PM RADIATION DOSE METRICS: Total DLP (mGy-cm): 166 FINDINGS: Bones/joints: Degenerative disc changes similar to previous study. New anterolisthesis of approximately 3 mm of C3 on C4. No findings of fracture. Lungs: Lung apices are normal. Soft tissues: Unremarkable. CT/CT cervical spin wo con* [id number] IMPRESSION: No acute findings.
--- NOTE | 2023-03-21 18:52 | CTR_ITS ---
PROCEDURE INFORMATION: Exam: CT Abdomen And Pelvis Without Contrast Exam date and time: 03/21/2023 7:26 PM Age: 83 years old Clinical indication: Injury or trauma; Fall; Blunt; Generalized; Additional info: Fall, abd tenderness periumbilica, AMS TECHNIQUE: Imaging protocol: Computed tomography of the abdomen and pelvis without contrast. Radiation optimization: All CT scans at this facility use at least one of these dose optimization techniques: automated exposure control; mA and/or kV adjustment per patient size (includes targeted exams where dose is matched to clinical indication); or iterative reconstruction. REPORTING DATA: Count of CT and Cardiac NM exams in prior 12 months: This patient has received [address] and 0 known cardiac nuclear medicine studies in the 12 months prior to the current study. COMPARISON: [place] [id number] 07/01/2018 12:03 PM RADIATION DOSE METRICS: Total DLP (mGy-cm): 600 FINDINGS: Lungs: Emphysematous changes. Coronary arteries: Coronary artery atherosclerotic calcifications. Liver: Normal. No mass. Gallbladder and bile ducts: Normal. No calcified stones. No ductal dilation. Pancreas: Normal. No ductal dilation. Spleen: Normal. No splenomegaly. Adrenal glands: Normal. No mass. Kidneys and ureters: Normal. No hydronephrosis. Stomach and bowel: Constipation. Appendix: No evidence of appendicitis. Intraperitoneal space: Unremarkable. No free air. No significant fluid collection. Vasculature: Unremarkable. No abdominal aortic aneurysm. Lymph nodes: Unremarkable. No enlarged lymph nodes. 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 Reproductive: Unremarkable as visualized. 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 Soft tissues: Unremarkable. CT/CT abdomen pelvis wo con [id number] IMPRESSION: 1. Negative for traumatic injury to the abdomen or pelvis. 2. Coronary artery atherosclerotic calcifications. 3. Emphysematous changes. 4. Constipation. 5. 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 6. 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
--- NOTE | 2023-03-21 18:52 | XRR_ITS ---
PROCEDURE INFORMATION: Exam: XR Chest Exam date and time: 03/21/2023 7:06 PM Age: 83 years old Clinical indication: Injury or trauma; Other: Possible fall TECHNIQUE: Imaging protocol: Radiologic exam of the chest. Views: 1 view. COMPARISON: CR (CHEST, ) 03/04/2023 5:18 PM FINDINGS: Lungs: Calcified pulmonary granulomatous change. Pleural spaces: Unremarkable. No pleural effusion. No pneumothorax. Heart/Mediastinum: Unremarkable. No cardiomegaly. Bones/joints: Advanced glenohumeral degenerative changes. No acute bony findings. XR/XR chest 1V portable [id number] IMPRESSION: No acute findings.
--- NOTE | 2023-03-21 18:52 | CTR_ITS ---
PROCEDURE INFORMATION: Exam: CT Maxillofacial Without Contrast Exam date and time: 03/21/2023 7:20 PM Age: 83 years old Clinical indication: Injury or trauma; Fall; Blunt trauma (contusions or hematomas); Forehead and nose and ocular (eye or eyeball); Right; Additional info: Fall, head injury, AMS TECHNIQUE: Imaging protocol: Computed tomography of the face without contrast. Radiation optimization: All CT scans at this facility use at least one of these dose optimization techniques: automated exposure control; mA and/or kV adjustment per patient size (includes targeted exams where dose is matched to clinical indication); or iterative reconstruction. REPORTING DATA: Count of CT and Cardiac NM exams in prior 12 months: This patient has received [address] and 0 known cardiac nuclear medicine studies in the 12 months prior to the current study. COMPARISON: CT head wo con* [id number] 03/21/2023 7:17 PM RADIATION DOSE METRICS: Total DLP (mGy-cm): 477 FINDINGS: Orbital cavities: Orbits are normal. Globes are unremarkable. Bones/joints: No acute fracture. Paranasal sinuses: Small retention cyst left maxillary sinus. Soft tissues: Small soft tissue swelling lower right paramedian frontal region. CT/CT facial bones wo con* [id number] IMPRESSION: No acute bony findings.
--- NOTE | 2023-03-21 18:52 | CTR_ITS ---
PROCEDURE INFORMATION: Exam: CT Head Without Contrast Exam date and time: 03/21/2023 7:17 PM Age: 83 years old Clinical indication: Injury or trauma; Fall; Blunt trauma (contusions or hematomas); Additional info: Fall, head injury, AMS TECHNIQUE: Imaging protocol: Computed tomography of the head without contrast. Radiation optimization: All CT scans at this facility use at least one of these dose optimization techniques: automated exposure control; mA and/or kV adjustment per patient size (includes targeted exams where dose is matched to clinical indication); or iterative reconstruction. REPORTING DATA: Count of CT and Cardiac NM exams in prior 12 months: This patient has received [address] and 0 known cardiac nuclear medicine studies in the 12 months prior to the current study. COMPARISON: CT angio headneck* [id number] 03/04/2023 6:09 PM RADIATION DOSE METRICS: Total DLP (mGy-cm): 1258 FINDINGS: Brain: Chronic right thalamic lacune. Vague low-density previously seen in medial left thalamus is unchanged. Chronic lacune or prominent perivascular space lower left basal ganglia. No findings of intracranial hemorrhage. Cerebral ventricles: Unchanged Paranasal sinuses: Visualized sinuses are unremarkable. No fluid levels. Mastoid air cells: Visualized mastoid air cells are well aerated. Bones/joints: No acute findings. Soft tissues: Unremarkable. CT/CT head wo con* [id number] IMPRESSION: No acute intracranial abnormality.
--- NOTE | 2023-03-21 18:52 | XRR_ITS ---
PROCEDURE INFORMATION: Exam: XR Right Finger(s) Exam date and time: 03/21/2023 7:07 PM Age: 83 years old Clinical indication: Pain; Finger(s); Right; Additional info: 5th digit contusion TECHNIQUE: Imaging protocol: Radiologic exam of the right fingers. Views: Minimum 2 views. COMPARISON: No relevant prior studies available. FINDINGS: Bones/joints: Diffuse osteopenia. No acute bony findings. Soft tissues: Normal. XR/XR finger RT min 2V [id number] IMPRESSION: No acute findings.
--- NOTE | 2023-03-21 19:03 | ECG_ITS ---
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 Measurements Intervals [place] Rate: 98 P: 71 SC: 143 QRS: 27 QRSD: 109 T: 68 QT: 364 QTc: 465 Interpretive Statements SINUS RHYTHM LOW QRS VOLTAGE IN PRECORDIAL LEADS [QRS DEFLECTION < 1.0 mV IN CHEST LEADS] ANTEROSEPTAL MYOCARDIAL INFARCTION , OF INDETERMINATE AGE [40+ ms Q WAVE IN V1-V4] Compared to ECG 03/04/2023 17:59:22 Atrial fibrillation no longer present Incomplete right bundle-branch block no longer present Myocardial infarct finding still present Electronically Signed On 03-21-2023 20:37:05 CDT by Dominic Menendez M.D. [id number]
[2023-03-21 19:24] LABS: Basophils % 0.3 %; Eosinophils # 0.4 10^3/uL (0.0-0.8); Eosinophils % 2.8 %; Hematocrit 44.8 % (42.0-52.0); Hemoglobin 14.3 g/dL (11.7-16.6); Lymphocytes # 1.4 10^3/uL (0.8-4.8); Lymphocytes % 10.7 %; Mean Corpuscular HGB Conc 31.9 g/dL (30.0-36.0); Mean Corpuscular Hemoglobin 29.3 pg (28.0-34.0); Mean Corpuscular Volume 91.8 fl (80-94); Mean Platelet Volume 8.8 fL (7.4-10.4); Monocytes % 7.6 %; Neutrophils # 10.07 10^3/uL (1.8-7.7); Neutrophils % 78.1 %; Nucleated Red Blood Cells % 0 %; Platelet Count 388 10^3/cmm (130-400); Red Blood Count 4.88 10^6/uL (4.1-5.3); Red Cell Distribution Width 12.1 % (12.1-15.1); White Blood Count 12.9 10^3/uL (4.0-10.0)
[2023-03-21 19:41] LABS: Alanine Aminotransferase 13 U/L (0-41); Albumin Level 4.2 g/dL (3.5-5.2); Alkaline Phosphatase 99 U/L (40-130); Aspartate Amino Transferase 18 U/L (0-40); Blood Urea Nitrogen 27 mg/dL (8-23); Chloride 98 mmol/L (98-107); Globulin 3.6 g/dL (1.3-4.6); Glucose 103 mg/dL (65-115); Osmolality Calculated 301 mOsm/kg (285-295); Potassium 3.5 mmol/L (3.5-5.1); Sodium 143 mmol/L (136-145); Total Bilirubin 0.6 mg/dL (0.15-1.2); Total Protein 7.8 g/dL (6.6-8.7)
[2023-03-21 20:25] LABS: Anion Gap 17.5 (5-19); Carbon Dioxide 31 mmol/L (22-29)
[2023-03-21] MEDS: sodium chloride 0.9% 1,000 ML 999 ML IV (20:50)
[2023-03-21 21:40] LABS: Add Urine Microscopic? YES; Bilirubin Urine Neg (Negative); Blood Urine 3+ (Negative); Glucose Urine UA Norm (Normal); Ketones Urine 1+ (Negative); Leukocyte Esterase Urine Negative (Negative); Nitrate Urine Negative (Negative); Protein Urine 1+ (Negative); RBC Urine 25-40 /hpf (0-2); Urine Appearance SL Hazy (CLEAR); Urine Color Yellow (Yellow); Urobilinogen Urine 1 mg/dL (Negative); pH Urine 5 (5-7)
[2023-03-21 21:41] LABS: Add Urine Culture? Yes; Mucus Urine 1+ /hpf
[2023-03-21 22:26] LABS: Glucose Point of Care 93 mg/dL (70-110)
[2023-03-21 22:40] LABS: ABG PCO2 45.7 mmHg (35-45); ABG PH Result 7.42 (7.35-7.45); Arterial Blood Gas Hematocrit 37.4 % (42-52); Base Excess ABG 4.3 mmol/L (-2.0-2.0); Blood Gas Allen Test Pos; Blood Gas Sample Type Arterial; HCO3 ABG 29.5 mmol/L (22-26); PO2 ABG 72.8 mmHg (80.0-100.0)
[2023-03-21 22:41] LABS: Blood Gas Sample Site Radial, right
[2023-03-21 23:43] LABS: C Reactive Protein 57.5 mg/L (0.0-4.9); Troponin(5th) Baseline 20 ng/L (0-15)
[2023-03-21 23:50] LABS: Procalcitonin 0.06 ng/mL (0-0.5)
[2023-03-22] VITALS (10 sets, daily range): BP systolic 110–158; BP diastolic 67–83; PULSE 48–89; RESP 15–18; TEMP 36.3–36.8; O2SAT 93–96; BMI 28.3
--- NOTE | 2023-03-22 01:20 | ECG_ITS ---
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 Measurements Intervals [place] Rate: 55 P: 66 MI: 155 QRS: 8 QRSD: 109 T: 71 QT: 460 QTc: 443 Interpretive Statements SINUS BRADYCARDIA LOW QRS VOLTAGE IN PRECORDIAL LEADS [QRS DEFLECTION < 1.0 mV IN CHEST LEADS] ANTEROSEPTAL MYOCARDIAL INFARCTION , OF INDETERMINATE AGE [40+ ms Q WAVE IN V1-V4] Compared to ECG 03/21/2023 19:03:47 Sinus rhythm no longer present Myocardial infarct finding still present Electronically Signed On 03-22-2023 11:03:52 CDT by Dominic Menendez M.D. [email or web address]/[id number]
--- NOTE | 2023-03-22 01:54 | PC.NURSE ---
Addendum entered by Debbie Tavares RN 03/22/23 01:57: Unable to complete suicide risk assessment as patient does not answer the questions. Original Note: Patient lethargic. Patient follows verbal commands well. 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 Patient has minimal verbal response. Patient says few words and is difficult to understand. Will contact Tamir Fuller for information for admission assessment. Unable to assess patient's orientation status, as patient will not answer the question. Bed alarm is set.
--- NOTE | 2023-03-22 02:08 | PC.NURSE ---
half-way staff states that patient is normally able to feed himself but that he needs encouragement because he doesn't have much of an appetite. half-way staff states patient gets around by wheelchair. Admission assessment information from half-way staff.
[2023-03-22 02:09] LABS: Troponin 5 2HR 19.33 ng/L (0-15)
[2023-03-22 02:26] LABS: Troponin 5 2HR Delta -0.67 ABS# (0-10)
--- NOTE | 2023-03-22 04:51 | P.HP_ITS ---
Providers/Chief Complaint Admitting Physician: Gail Cheung MD Primary Care Provider: Shabbir Moran MD Chief Complaint: Stroke-Like Symptoms History of Present Illness Cooper Fermin is a 83 year old male with history of dementia, hypertension, hyperlipidemia, TIA, recent thalamic stroke status post being sent to rehab center presented to the hospital today with mental status changes and facial trauma. Patient is a poor historian and not really waking up and is altered at this time unable to provide any history. Family was at bedside in the ER. The patient was okay up until yesterday but he has a small bruise on his forehead and his left hand. Unsure if the patient has had a fall. Today the bruise seemed larger in the right medial periorbital region and patient seems much more confused around the nighttime. When seen by hospitalist there was no family present. Patient not really waking up but will withdraw to sternal rub and will withdraw to pain at this time. He has had a similar presentation beginning of this month when he presented with a stroke. In the ER today blood pressure 107/77, respiratory 16, pulse 91, temperature 97.5, saturating 93% on room air. WBC 12.9, Hemoglobin 14.3, platelets 388, 7.40 45.7/72.8/29.5. Sodium 143, potassium 3.5, CO2 31, BUN 27, creatinine 1.2, baseline troponin 20, 2-hour troponin 19.33 with delta of -0.6 hours. CRP 57.5. Procalcitonin 0.06. Patient has been afebrile. Urinalysis positive for 25-40 RBCs, 3+ blood, positive ketones, 1+ protein. Patient did have a CT abdomen pelvis done which was negative for traumatic injury to the abdomen or pelvis. Showed emphysematous changes, constipation, left pelvic cystic structure measuring 3.7 cm. Reflective urinary bladder diverticulum, cervical spine CT showed no acute findings, chest x-ray showed no acute findings, facial CT obtained showed no acu te bony findings, no fractures present, right finger x-ray showed no acute findings, head CT showed no acute intracranial abnormality. CT head shows chronic right thalamic lacunar vague low-density previously seen in medial left thalamus is unchanged. Chronic lacunar prominent perivascular space lower left basal ganglia. No findings of intracranial hemorrhage. When seen by hospitalist no family present at bedside. Medications/Allergies Home Medications Medication Instructions Recorded Confirmed Last Taken Type furosemide 20 mg tablet 40 mg PO DAILY 06/30/22 03/22/23 Unknown History albuterol sulfate 90 mcg/actuation 2 puff inhalation Q6H PRN 02/16/23 03/22/23 Unknown Rx aerosol inhaler (Ventolin HFA) shortness of breath or wheezing #8.5 grams nystatin 100,000 unit/gram topical 1 applic topical BID #30 grams 02/16/23 03/22/23 Unknown Rx powder terbinafine HCl 1 % topical cream 1 applic topical BID #30 grams 02/16/23 03/22/23 Unknown Rx (Lamisil AT) amlodipine 5 mg tablet 5 mg PO DAILY PRN Hypertension #30 03/09/23 03/22/23 Unknown Rx tabs aspirin 325 mg tablet 325 mg PO DAILY #90 tabs 03/09/23 03/22/23 Unknown Rx clopidogrel 75 mg tablet 75 mg PO DAILY #21 tabs 03/09/23 03/22/23 Unknown Rx atorvastatin 40 mg tablet 80 mg PO BEDTIME 03/22/23 03/22/23 Unknown History ciprofloxacin HCl 0.3 % eye drops 1 drp ophthalmic (eye) DAILY 03/22/23 03/22/23 Unknown History escitalopram oxalate 10 mg tablet 10 mg PO DAILY 03/22/23 03/22/23 Unknown History memantine 10 mg tablet 10 mg PO BID 03/22/23 03/22/23 Unknown History metoprolol tartrate 25 mg tablet 25 mg PO BID 03/22/23 03/22/23 Unknown History tamsulosin 0.4 mg capsule 0.4 mg PO DAILY 03/22/23 03/22/23 Unknown History Allergies Allergy/AdvReac Type Severity Reaction Status Date / Time risperidone [From Risperdal] Allergy Intermediate hallucinati Verified 03/22/23 02:02 ons Penicillins Allergy Unknown Verified 03/22/23 02:02 PFSH Acute PFSH: Medical History Dementia Elevated PSA HTN (hypertension) Hyperlipemia Lewy body dementia with behavioral disturbance TIA (transient ischemic attack) Family History Mother Diabetes Father CHF (congestive heart failure) Other CAD (coronary artery disease) Stroke Social History Smoking and tobacco status: former smoker Alcohol intake: current Alcohol intake frequency: holidays/special occasions only Substance/Drug Use: unknown Adopted: No Caregiver/support person: No Lives independently: No Household members: spouse Marital status: Current occupational status: retired Current gender identity: Male Vitals/I&O/Wt Last Vital Signs Temp 97.8 F 03/22/23 03:56 Pulse 60 03/22/23 03:56 Resp 17 03/22/23 03:56 BP 123/71 03/22/23 03:56 Pulse Ox 93 03/22/23 03:56 O2 Del Method Room Air 03/22/23 03:56 03/21/23 03/21/23 03/22/23 14:59 22:59 06:59 Intake Total 1000 / 1000 Balance 1000 / 1000 Weight last 48 hrs Weight 70.108 kg Physical Exam Narrative: General: Unresponsive, withdraws to pain. And sternal rub HEENT: Normocephalic, atraumatic, EOMI, no acute respiratory distress Cardio: Regular rate rhythm, normal S1-S2 Respiratory: Clear to auscultation bilaterally no wheezes no rhonchi GI: Abdomen soft, nontender, bowel sounds + Extremities: No lower extremity edema present Neuro: Withdraws to pain. And sternal rub unable to do a neuro exam. Data 03/21/23 19:03 03/21/23 19:03 A&P Assessment and plan (1) Hyperlipemia: (2) HTN (hypertension): (3) Lewy body dementia with behavioral disturbance: (4) Dementia: (5) Cerebrovascular accident: (6) Altered mental status: Plan #Altered mental status, somewhat unresponsive #Recent left medial thalamus stroke #History of TIA #History of dementia #Hypertension #Hyperlipidemia #Lewy body dementia - Nursing dysphagia screen ? Speech swallow evaluation ? Neuro check every 2 hours - Allow permissive hypertension ? Hold amlodipine, metoprolol tartrate, furosemide ? Continue atorvastatin 80 daily, aspirin 325, Plavix 75 daily once awake and able to interact. ? Repeat head CT in AM. Consider MRI to rule out new stroke. At previous admission MRI was attempted however patient did not cooperate and it was unable to get done. He had a very similar presentation at previous admission and patient was able to wake up within 48 hours. Consult neurology. Discussed with Dr. Potts. She will see him in consultation ? Placed on cardiac telemetry to rule out occult arrhythmia ? Continue memantine 10 mg daily once awake and able to interact ? Place Savage catheter ? PT OT -Normal saline 75 cc/h. ? Patient is unresponsive at this time.? Withdraws to pain.? Does not respond to sternal rub at all.? No breathing compromise at this time.?? -Previous admission 2 weeks ago patient was made DNR/DNI by family. CODE STATUS will need to be addressed in a.m. ? We will check vitamin B12 levels, ammonia ? Check urine culture ? Check blood cultures I do not suspect infection at this time. We will watch off antibiotics for now - Await 6 hour troponin - No acute ischemia on EKG - Check prolactin, lactic acid. Consider EEG to rule out seizure. He may be in post-ictal state? SCDs, heparin SQ twice daily DVT prophylaxis Attestations Medical Necessity Statement*: Greater than 2 midnight stay for management of altered mental status, unresponsive episode Other Coding Information Focused coding review requested Diagnoses Hyperlipemia E78.5 HTN (hypertension) I10 Lewy body dementia with behavioral disturbance G31.83; F02.81 Dementia F03.90 Cerebrovascular accident I63.9 Altered mental status R41.82
--- NOTE | 2023-03-22 05:01 | ECG_ITS ---
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 Measurements Intervals [place] Rate: 55 P: 67 LA: 146 QRS: 44 QRSD: 112 T: 38 QT: 418 QTc: 402 Interpretive Statements SINUS BRADYCARDIA LOW QRS VOLTAGE IN PRECORDIAL LEADS [QRS DEFLECTION < 1.0 mV IN CHEST LEADS] ANTEROSEPTAL MYOCARDIAL INFARCTION , OF INDETERMINATE AGE [40+ ms Q WAVE IN V1-V4] Compared to ECG 03/22/2023 01:20:13 No significant changes Electronically Signed On 03-22-2023 11:02:51 CDT by Dominic Menendez M.D. [email or web address].[email or web address]/store/[id number]
[2023-03-22] MEDS: heparin 5,000 unit/mL INJ 1 mL 5000 UNIT SUBCUT ×2 (05:29→18:10)
[2023-03-22] MEDS: sodium chloride 0.9% 1,000 ML 75 ML IV ×2 (05:31→20:00)
--- NOTE | 2023-03-22 06:11 | PC.NURSE ---
per dr duke, ham was placed. pt tolerated well, pt brief at time of placement was dry except for two dribble spots. once ham placed, pt had 600 mL of dark yellow urine out and ham was still draining
[2023-03-22 06:45] LABS: Lactic Sepsis W/Reflex 0.6 mmol/L (0.5-2.2)
[2023-03-22 07:00] LABS: Ammonia 22 umol/L (16-60)
[2023-03-22 07:02] LABS: Procalcitonin 0.07 ng/mL (0-0.5); Vitamin B12 1449 pg/mL (232-1245)
[2023-03-22 07:14] LABS: Troponin 5 6HR 19.73 ng/L (0-15)
[2023-03-22 07:21] LABS: Troponin 5 6HR Delta -0.27 ng/L (0-12)
[2023-03-22 07:36] LABS: Prolactin 8.36 ng/mL (4.0-15.2)
--- NOTE | 2023-03-22 09:05 | PM.CONSULT ---
Providers/Reason For Consult Consulting Physician/Specialty*: Skye Reason for Consult*: obtunded and will not arouse Attending Physician: Chi Kramer MD Primary Care Provider: Shabbir Moran MD History of Present Illness History of Present Illness 83-year-old man with end-stage dementia presenting in a coma. He had a recent thalamic infarct. I saw the patient, talked with Dr. Cheung. Patient's son. He was seen in the ER by Dr. Pagan 03/04/2023 with altered mental status superimposed on chronic dementia. He woke up not acting right after having been his normal self the night before. He was having trouble speaking, confusion and left-sided weakness. He scored 8 on the NIH stroke scale. He was not a candidate for tPA or thrombectomy although he had a new stroke in the left medial thalamus by head CT and CTA. He had no large vessel occlusive disease. He was unresponsive by the time he was seen by Dr. Cheung later that evening. His laboratory studies did not show anything reversible. After the Savage catheter was put in he put out a liter of urine. For some reason there was a plan to have an MRI that his CAT scan was abnormal and the family was not in favor of the study so it was canceled. Dr. Lopes confirmed what the patient's son says that at baseline he is able to walk with a walker and make his needs known although he is profoundly confused and does not always recognize his son. He pulled out his Savage catheter. He was evaluated by speech therapy and found to have dysphagia so he was put on a dysphagia diet. He was discharged to [facility] for rehab. His son says he was doing fairly well over the weekend until he fell out of bed and bumped the right side of his head. Since then he has been less responsive. He has not had any focal findings. He has been managed in the outpatient setting by Dr. Shabbir Moran for advanced dementia. Hospice consult obtained at the request of his unfortunately did not lead to any assistance in the home. His soon after he was discharged here on 03/09 (she last week). His son is at the bedside. His daughter is on a cruise. He has another son who is estranged from the family at this time. The patient's previously signed a comfort care only request and the patient's son reiterates that this is the patient and the family's desire. Review of Systems Narrative: He has not had any reported fever and was afebrile in the emergency department. His blood pressure was on the low side at 107/77 and he was oxygenating well on arrival. 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) Card: Denies: chest pain, palpitations, irregular heart rhythm or swelling of feet/ankles Resp: Denies: dyspnea or productive cough GI: Denies: abdominal pain, nausea or vomiting : Reports: difficulty urinating (He had significant urinary retention at the time of his last stay.) Musc: Reports: neck pain Skin/Breast: Denies: rash Neuro: Reports: weakness in extremities, lack of coordination (He usually walks with a walker) and difficulty walking; Denies: headache(s) Psych: Reports: memory loss and difficulty concentrating; Denies: visual hallucinations Medications/Allergies Home Medications Medication Instructions Recorded Confirmed Last Taken Type furosemide 20 mg tablet 40 mg PO DAILY 06/30/22 03/22/23 Unknown History albuterol sulfate 90 mcg/actuation 2 puff inhalation Q6H PRN 02/16/23 03/22/23 Unknown Rx aerosol inhaler (Ventolin HFA) shortness of breath or wheezing #8.5 grams nystatin 100,000 unit/gram topical 1 applic topical BID #30 grams 02/16/23 03/22/23 Unknown Rx powder terbinafine HCl 1 % topical cream 1 applic topical BID #30 grams 02/16/23 03/22/23 Unknown Rx (Lamisil AT) amlodipine 5 mg tablet 5 mg PO DAILY PRN Hypertension #30 03/09/23 03/22/23 Unknown Rx tabs aspirin 325 mg tablet 325 mg PO DAILY #90 tabs 03/09/23 03/22/23 Unknown Rx clopidogrel 75 mg tablet 75 mg PO DAILY #21 tabs 03/09/23 03/22/23 Unknown Rx atorvastatin 40 mg tablet 80 mg PO BEDTIME 03/22/23 03/22/23 Unknown History ciprofloxacin HCl 0.3 % eye drops 1 drp ophthalmic (eye) DAILY 03/22/23 03/22/23 Unknown History escitalopram oxalate 10 mg tablet 10 mg PO DAILY 03/22/23 03/22/23 Unknown History memantine 10 mg tablet 10 mg PO BID 03/22/23 03/22/23 Unknown History metoprolol tartrate 25 mg tablet 25 mg PO BID 03/22/23 03/22/23 Unknown History tamsulosin 0.4 mg capsule 0.4 mg PO DAILY 03/22/23 03/22/23 Unknown History Allergies Allergy/AdvReac Type Severity Reaction Status Date / Time risperidone [From Risperdal] Allergy Intermediate hallucinati Verified 03/22/23 02:02 ons Penicillins Allergy Unknown Verified 03/22/23 02:02 Current Medications Generic Name Dose Route Start Last Admin Trade Name Freq PRN Reason Stop Dose Admin Aspirin 325 mg 03/22/23 09:00 03/22/23 07:37 Aspirin 325 Mg Tablet PO Not Given DAILY KAYLA Clopidogrel Bisulfate 75 mg 03/22/23 09:00 03/22/23 07:37 Clopidogrel 75 Mg Tablet PO Not Given DAILY KAYLA Escitalopram Oxalate 10 mg 03/22/23 09:00 03/22/23 07:37 Escitalopram 10 Mg Tablet PO Not Given DAILY KAYLA Heparin Sodium (Porcine) 5,000 unit 03/22/23 05:00 03/22/23 05:29 Heparin 5,000 Unit/Ml Inj 1 Ml SUBCUT 5,000 unit Q12H KAYLA Administration Sodium Chloride 1,000 mls @ 75 mls/hr 03/22/23 05:00 03/22/23 05:31 Sodium Chloride 0.9% IV 75 mls/hr .[id number] KAYLA Administration Memantine 10 mg 03/22/23 09:00 03/22/23 07:37 Memantine 5 Mg Tablet PO Not Given BID KAYLA Tamsulosin HCl 0.4 mg 03/22/23 09:00 03/22/23 07:37 Tamsulosin 0.4 Mg Capsule PO Not Given DAILY KAYLA PFSH Acute PFSH: Medical History Dementia Elevated PSA HTN (hypertension) Hyperlipemia Lewy body dementia with behavioral disturbance TIA (transient ischemic attack) Family History Mother Diabetes Father CHF (congestive heart failure) Other CAD (coronary artery disease) Stroke Social History Smoking and tobacco status: former smoker Alcohol intake: current Alcohol intake frequency: holidays/special occasions only Substance/Drug Use: unknown Adopted: No Caregiver/support person: No Lives independently: No Household members: spouse Marital status: Current occupational status: retired Current gender identity: Male Vitals/I&O/Wt Last Vital Signs Temp 97.4 F L 03/22/23 07:35 Pulse 48 L 03/22/23 07:35 Resp 15 03/22/23 07:35 BP 127/74 03/22/23 07:35 Pulse Ox 93 03/22/23 07:35 O2 Del Method Room Air 03/22/23 03:56 03/21/23 03/22/23 03/22/23 22:59 06:59 14:59 Intake Total 1000 / 1000 Output Total 650 / 650 Balance 350 / 350 Weight last 48 hrs Weight 154 lb 9 oz Physical Exam Narrative: Mental status exam: The patient was obtunded. He was sleeping with his head in an extended position and his respiratory pattern was normal. No agonal respirations or [place]-Seo. He became more alert with aggressive stimulation. He easily responded to brow pressure and became fully alert after I touched him with him. He was able to answer questions in a full sentence although his communication was vague. When his son said that he should open his eyes and sit up he said I do not think so. At other times he answers yes or no. He indicated that he was not in pain. He indicated that he was hungry. Cranial nerves: He response to threat in the right temporal field but he would not keep his eyes open enough to check other visual [place]itting[place]. He is reportedly blind on the left. Spontaneous eye movements were without sign of gaze preference. He prefers to keep his eyes closed. Motor: He withdraws briskly in all 4 extremities from pin. Tone paratonic with gegenhalten throughout. Deep tendon reflexes 2+ except the ankle jerks are absent. Toes downgoing bilaterally. Coordination no specific cerebellar signs. Gait not tested and not testable. HEENT he has a raccoon sign on the right. Neck: Stiff as all of his muscles are stiff. Chest clear to auscultation. Cardiovascular: S1 and S2 normal without murmur or gallop. Extremities no other deformities. No other bruising although his son notes that his finger is crooked on one hand. Urinary Catheter Management: Savage: Cath Placed During This Visit: yes Reason for Continuing Indwelling Catheter: Acute Urinary Retention or Obstruction Urinary Catheter Date of Insertion: 03/22/23 Urinary Catheter Time of Insertion: 05:59 Data 03/21/23 19:03 03/21/23 19:03 Other Labs: CT head 03/04/2023 compared with 03/21/2023 shows profound diffuse atrophy with hydrocephalus ex vacuo. Left thalamic stroke involving. No large vessel occlusion. His CT of the head from 01/25/2020 shows an old right thalamic stroke that has subsequently evolved and disappeared. Micro: Microbiology 03/22/23 06:06 Blood Culture - Preliminary Blood SPECIMEN COLLECTED 03/22/23 06:06 Blood Culture - Preliminary Blood SPECIMEN COLLECTED A&P Assessment and plan (1) Concussion: This patient had a recent left thalamic stroke with profound obtundation superimposed upon his chronic end-stage dementia. His last week and he fell out of bed and hit his head. His son is interested in taking him home to take care of him as he is distraught over the patient's injury and subsequent obtundation but I assured him that I do not think that he can take care of of the patient at home as I think he needs a rehab situation at this point because of his recent stroke and superimposed concussion. The patient is moderately obtunded but not comatose and by persistently stimulating him I was able to do a bedside swallowing evaluation and assure myself that he can swallow 10 mL of water while sitting at 90 degrees with his chin tucked and he did not aspirate. He will need speech therapy to reevaluate his swallowing in order to get him on oral feedings. Physical therapy evaluation to get him out of the bed and he will need to be rehabilitated subsequent to this hospitalization. Reevaluate his bladder for urinary retention and any metabolic problems that may be contributing to the recrudescence of his stroke symptoms. I cannot rule out possibility of extension of either of his thalamic infarcts but I do not think we need to pursue this aggressively as there is no other indication for treatment beyond aspirin, clopidogrel and rehabilitation as you are doing. No sign of seizures and nothing about his history would suggest seizures for an etiology. (2) Lewy body dementia with behavioral disturbance: (3) Thalamic stroke: Coding Level of Care Code Acute Code for [facility] Fwd Diagnoses Concussion S06.0XAA Lewy body dementia with behavioral disturbance G31.83; F02.81 Thalamic stroke I63.81
[2023-03-22 10:36] LABS: SARS Covid-2 Antigen negative (Negative)
--- NOTE | 2023-03-22 20:05 | PC.NURSE ---
PO atorvastatin unable to administer this pm due to patient not being alert enough to take Po meds.
[2023-03-23] VITALS (7 sets, daily range): BP systolic 126–154; BP diastolic 66–80; PULSE 67–79; RESP 16–17; TEMP 36.6–36.8; O2SAT 94–96
[2023-03-23] MEDS: heparin 5,000 unit/mL INJ 1 mL 5000 UNIT SUBCUT ×2 (04:27→17:19)
[2023-03-23 09:40] LABS: Basophils % 0.3 %; Eosinophils # 0.3 10^3/uL (0.0-0.8); Hematocrit 38.2 % (42.0-52.0); Hemoglobin 12.2 g/dL (11.7-16.6); Lymphocytes # 1.1 10^3/uL (0.8-4.8); Lymphocytes % 8.5 %; Mean Corpuscular HGB Conc 31.9 g/dL (30.0-36.0); Mean Corpuscular Volume 94.1 fl (80-94); Mean Platelet Volume 8.7 fL (7.4-10.4); Monocytes # 0.7 10^3/uL (0.2-0.9); Neutrophils # 10.23 10^3/uL (1.8-7.7); Neutrophils % 82.7 %; Nucleated Red Blood Cells % 0 %; Platelet Count 279 10^3/cmm (130-400); Red Blood Count 4.06 10^6/uL (4.1-5.3); White Blood Count 12.4 10^3/uL (4.0-10.0)
[2023-03-23 10:05] LABS: Alanine Aminotransferase 11 U/L (0-41); Albumin Level 3.4 g/dL (3.5-5.2); Alkaline Phosphatase 88 U/L (40-130); Anion Gap 13.8 (5-19); Aspartate Amino Transferase 15 U/L (0-40); Blood Urea Nitrogen 19 mg/dL (8-23); Calcium 8.4 mg/dL (8.5-10.5); Carbon Dioxide 28 mmol/L (22-29); Chloride 106 mmol/L (98-107); Globulin 3.3 g/dL (1.3-4.6); Glucose 83 mg/dL (65-115); Osmolality Calculated 299 mOsm/kg (285-295); Phosphorus 2.7 mg/dL (2.5-4.5); Potassium 3.8 mmol/L (3.5-5.1); Sodium 144 mmol/L (136-145); Total Bilirubin 0.8 mg/dL (0.15-1.2); Total Protein 6.7 g/dL (6.6-8.7)
[2023-03-23] MEDS: sodium chloride 0.9% 1,000 ML 75 ML IV (10:40)
--- NOTE | 2023-03-23 14:39 | PM.PN ---
Subjective Subjective: Patient is awake and alert this morning. He has family members bedside. Patient does not recall the events at the nursing facility prior to admission. Family reports patient looks much better than he has looked for at least a week. Patient denies any focal complaints. Denies fevers, chills, nausea or emesis. Denies any facial pain. Vitals/I&O/Wt Last Vital Signs Temp 98.2 F 03/23/23 12:00 Pulse 68 03/23/23 12:00 Resp 16 03/23/23 12:00 BP 126/66 03/23/23 12:00 Pulse Ox 96 03/23/23 12:00 O2 Del Method Room Air 03/23/23 04:23 03/22/23 03/23/23 03/23/23 22:59 06:59 14:59 Intake Total 1000 / 1000 0 / 1000 1220 / 1220 Output Total 450 / 450 300 / 750 Balance 550 / 550 -300 / 250 1220 / 1220 Weight last 48 hrs Weight 70.108 kg Physical Exam Narrative: General: Patient is awake. Alert. Head: Normocephalic. EOM intact. Periorbital bruising present. Neck: No JVD. Cardiovascular: RRR. No gallops. No murmurs. No peripheral edema. Lungs: Clear to auscultation, no use of accessory muscles, no crackles or wheezes. Skin: No jaundice. No rashes. Abdomen: Hypoactive bowel sounds, abdomen soft and nontender. Genito Urinary: Genital exam not performed since complaints not related. Rectal: Rectal exam not performed since no symptoms indicated blood loss. Extremities: No cyanosis or clubbing. Musculoskeletal: No erythematous joints. Neurological: Moves all 4 extremities. No myoclonus. Urinary Catheter Management: Savage: Cath Placed During This Visit: yes Reason for Continuing Indwelling Catheter: Acute Urinary Retention or Obstruction Urinary Catheter Date of Insertion: 03/22/23 Urinary Catheter Time of Insertion: 05:59 Data 03/23/23 09:21 03/23/23 09:21 Micro: Microbiology 03/21/23 21:25 Urine Culture - Preliminary Urine,Clean Catch 03/22/23 06:06 Blood Culture - Preliminary Blood NEGATIVE TO DATE 03/22/23 06:06 Blood Culture - Preliminary Blood NEGATIVE TO DATE A&P Assessment and plan (1) Concussion: With altered mental status, improving Neurology evaluated, appreciate recommendations Continue therapy Disposition to be determined with ongoing advance care planning with family Avoid sedating medications (2) Cerebrovascular accident: Neurochecks Continue aspirin Continue statin Continue Plavix (3) Dementia: Continue Namenda (4) HTN (hypertension): Continue to monitor (5) Hyperlipemia: Continue statin Plan DVT ppx: Heparin Code status: AND Attestations Medical Necessity Statement*: Patient requires ongoing hospitalization for serial neurological exams, concussion treatment, therapy, advanced care planning, and securing safe disposition. Coding Level of Care Code Acute Code for g Fwd Diagnoses Concussion S06.0XAA Cerebrovascular accident I63.9 Dementia F03.90 HTN (hypertension) I10 Hyperlipemia E78.5
[2023-03-23] MEDS: acetaminophen 325 mg Tablet 650 MG PO (15:51)
[2023-03-23] MEDS: memantine 5 mg tablet 10 MG PO (17:22)
[2023-03-23] MEDS: atorvastatin 40 mg Tablet 80 MG PO (20:03)
[2023-03-24] VITALS (7 sets, daily range): BP systolic 120–153; BP diastolic 64–85; PULSE 66–96; RESP 15–18; TEMP 36.5–36.8; O2SAT 92–97
[2023-03-24] MEDS: heparin 5,000 unit/mL INJ 1 mL 5000 UNIT SUBCUT ×2 (05:53→17:49)
[2023-03-24] MEDS: memantine 5 mg tablet 10 MG PO ×2 (08:47→17:49)
[2023-03-24] MEDS: escitalopram 10 mg Tablet PO (08:48)
[2023-03-24] MEDS: tamsulosin 0.4 mg Capsule PO (08:48)
[2023-03-24] MEDS: clopidogrel 75 mg Tablet PO (08:48)
[2023-03-24] MEDS: aspirin 325 mg Tablet PO (08:48)
--- NOTE | 2023-03-24 14:33 | PM.PN ---
Subjective Subjective: Patient is again awake and alert. Conversational. He reports he feels better. Does not recall the events immediately prior to hospitalization. Denies fevers, chills, chest pain, abdominal pain, or headache. Discussed continuing therapy and he is in agreement. Medications: Reviewed: Yes Vitals/I&O/Wt Last Vital Signs Temp 98.0 F 03/24/23 12:00 Pulse 96 03/24/23 12:00 Resp 17 03/24/23 12:00 BP 137/85 03/24/23 12:00 Pulse Ox 93 03/24/23 12:00 O2 Del Method Room Air 03/24/23 04:00 03/23/23 03/24/23 03/24/23 22:59 06:59 14:59 Intake Total 30 / 1250 1360 / 1360 Output Total 500 / 500 600 / 1100 Balance -470 / 750 -600 / 150 1360 / 1360 Physical Exam Narrative: General: Patient is awake. Alert. Head: Normocephalic. EOM intact. Periorbital bruising present. Neck: No JVD. Cardiovascular: RRR. No gallops. No murmurs. Lungs: Clear to auscultation, no use of accessory muscles, no crackles or wheezes. Skin: No jaundice. No rashes. Abdomen: Hypoactive bowel sounds, abdomen soft and nontender. Genito Urinary: Genital exam not performed since complaints not related. Rectal: Rectal exam not performed since no symptoms indicated blood loss. Extremities: No cyanosis or clubbing. Musculoskeletal: No erythematous joints. Neurological: Moves all 4 extremities. No myoclonus. Urinary Catheter Management: Savage: Cath Placed During This Visit: yes Reason for Continuing Indwelling Catheter: Chronic Indwelling Urinary Catheter on Admission Urinary Catheter Date of Insertion: 03/22/23 Urinary Catheter Time of Insertion: 05:59 Data 03/23/23 09:21 03/23/23 09:21 Micro: Microbiology 03/21/23 21:25 Urine Culture - Final Urine,Clean Catch A&P Assessment and plan (1) Concussion: Mentation is improving Continue therapies Will need post acute care when medically ready (2) Cerebrovascular accident: Continue aspirin Continue statin Continue Plavix (3) Dementia: Continue Namenda (4) HTN (hypertension): Continue to monitor (5) Hyperlipemia: Continue statin Plan DVT ppx: Heparin Code status: AND Attestations Medical Necessity Statement*: Patient requires ongoing hospitalization for serial neurological exams, concussion treatment, therapy, advanced care planning, and securing safe disposition. Coding Level of Care Code Acute Code for Chg Fwd Diagnoses Concussion S06.0XAA Cerebrovascular accident I63.9 Dementia F03.90 HTN (hypertension) I10 Hyperlipemia E78.5
[2023-03-24] MEDS: sodium chloride 0.9% 1,000 ML 75 ML IV (15:31)
[2023-03-24] MEDS: atorvastatin 40 mg Tablet 80 MG PO (21:23)
[2023-03-25 03:43] VITALS: BP 122/68; PULSE 72; RESP 16; TEMP 36.6; O2SAT 92
[2023-03-25] MEDS: sodium chloride 0.9% 1,000 ML 75 ML IV ×2 (04:19→16:59)
[2023-03-25] MEDS: heparin 5,000 unit/mL INJ 1 mL 5000 UNIT SUBCUT ×2 (04:54→17:00)
[2023-03-25 07:58] VITALS: BP 160/67; PULSE 72; RESP 16; TEMP 36.7; O2SAT 96
[2023-03-25] MEDS: memantine 5 mg tablet 10 MG PO ×2 (09:50→16:59)
[2023-03-25] MEDS: sennosides-docusate Tablet 2 TAB PO ×2 (09:50→17:00)
[2023-03-25] MEDS: aspirin 325 mg Tablet PO (09:50)
[2023-03-25] MEDS: escitalopram 10 mg Tablet PO (09:50)
[2023-03-25] MEDS: tamsulosin 0.4 mg Capsule PO (09:50)
[2023-03-25] MEDS: clopidogrel 75 mg Tablet PO (09:50)
--- NOTE | 2023-03-25 11:10 | PM.PN ---
Subjective Subjective: Patient is awake. He denies any complaints. Denies fevers, chills, headache or emesis. Medications: Reviewed: Yes Vitals/I&O/Wt Last Vital Signs Temp 98.0 F 03/25/23 07:58 Pulse 72 03/25/23 07:58 Resp 16 03/25/23 07:58 BP 160/67 03/25/23 07:58 Pulse Ox 96 03/25/23 07:58 O2 Del Method Room Air 03/25/23 07:58 03/24/23 03/25/23 03/25/23 22:59 06:59 14:59 Intake Total 1000 / 2360 120 / 120 Output Total 400 / 400 300 / 700 Balance -400 / 960 700 / 1660 120 / 120 Physical Exam Narrative: General: Patient is awake. Alert. Lying in bed. Head: Normocephalic. EOM intact. Periorbital bruising is improving. Neck: No JVD. Cardiovascular: RRR. No gallops. No murmurs. Lungs: Clear to auscultation, no use of accessory muscles, no crackles or wheezes. Skin: No jaundice. No rashes. Abdomen: Hypoactive bowel sounds, abdomen soft and nontender. Genito Urinary: Genital exam not performed since complaints not related. Rectal: Rectal exam not performed since no symptoms indicated blood loss. Extremities: No cyanosis or clubbing. Musculoskeletal: No erythematous joints. Neurological: Moves all 4 extremities. No myoclonus. Urinary Catheter Management: Savage: Cath Placed During This Visit: yes, but has since been removed by the nurse Reason for Continuing Indwelling Catheter: Acute Urinary Retention or Obstruction Urinary Catheter Date of Insertion: 03/24/23 Urinary Catheter Time of Insertion: 18:58 Date Urinary Catheter Removed: 03/24/23 Time Urinary Catheter Discontinued: 18:58 Data 03/23/23 09:21 03/23/23 09:21 Micro: Microbiology 03/21/23 21:25 Urine Culture - Final Urine,Clean Catch A&P Assessment and plan (1) Concussion: Mentation is improving, likely approaching baseline Continue therapies CM has seen referral for SNF for skilled therapy, will need insurance auth submitted on Monday (2) Cerebrovascular accident: Continue aspirin Continue statin Continue Plavix (3) Dementia: Continue Namenda (4) HTN (hypertension): Continue to monitor (5) Hyperlipemia: Continue statin Plan DVT ppx: Heparin Code status: AND Attestations Medical Necessity Statement*: Patient requires ongoing hospitalization for concussion treatment, therapy, and securing safe disposition. Coding Level of Care Code Acute Code for Chg Fwd Diagnoses Concussion S06.0XAA Cerebrovascular accident I63.9 Dementia F03.90 HTN (hypertension) I10 Hyperlipemia E78.5
[2023-03-25 11:57] VITALS: BP 163/81; PULSE 70; RESP 16; TEMP 36.5; O2SAT 96
[2023-03-25 12:06] LABS: Add Urine Culture? Yes; Add Urine Microscopic? YES; Bacteria Urine 1+ /hpf; Bilirubin Urine Neg (Negative); Blood Urine 3+ (Negative); Glucose Urine UA Norm (Normal); Ketones Urine 1+ (Negative); Leukocyte Esterase Urine 2+ (Negative); Nitrate Urine Negative (Negative); Protein Urine Neg (Negative); RBC Urine 25-40 /hpf (0-2); Specific Gravity, Urine 1.015 (1.005-1.030); Urine Appearance Hazy (CLEAR); Urobilinogen Urine 8 mg/dL (Negative); WBC Urine 25-40 /hpf (0-5); pH Urine 7 (5-7)
[2023-03-25 13:12] LABS: Urine Color Yellow (Yellow)
[2023-03-25 15:40] VITALS: BP 171/85; PULSE 75; RESP 16; TEMP 36.8; O2SAT 95
[2023-03-25] MEDS: cefTRIAXone 1,000 MG in sodium chloride 0.9% (plus) 50 ML 100 MG IV (17:00)
[2023-03-25 19:47] VITALS: BP 164/81; PULSE 95; RESP 18; TEMP 36.7; O2SAT 93
[2023-03-25] MEDS: atorvastatin 40 mg Tablet 80 MG PO (20:22)
[2023-03-25 20:27] LABS: Glucose Point of Care 120 mg/dL (70-110)
[2023-03-26] VITALS (7 sets, daily range): BP systolic 144–165; BP diastolic 77–91; PULSE 72–91; RESP 16–18; TEMP 36.4–36.9; O2SAT 95–97
[2023-03-26] MEDS: heparin 5,000 unit/mL INJ 1 mL 5000 UNIT SUBCUT ×2 (05:34→16:23)
[2023-03-26 06:20] LABS: Glucose Point of Care 106 mg/dL (70-110)
[2023-03-26] MEDS: aspirin 325 mg Tablet PO (09:30)
[2023-03-26] MEDS: memantine 5 mg tablet 10 MG PO ×2 (09:30→17:23)
[2023-03-26] MEDS: escitalopram 10 mg Tablet PO (09:30)
[2023-03-26] MEDS: clopidogrel 75 mg Tablet PO (09:30)
[2023-03-26] MEDS: sennosides-docusate Tablet 2 TAB PO ×2 (09:30→17:23)
[2023-03-26] MEDS: tamsulosin 0.4 mg Capsule PO (09:30)
[2023-03-26] MEDS: sodium chloride 0.9% 1,000 ML 75 ML IV (09:32)
[2023-03-26 11:44] LABS: Glucose Point of Care 94 mg/dL (70-110)
--- NOTE | 2023-03-26 12:12 | PM.PN ---
Subjective Subjective: Patient is initially sleeping but awakes to verbal stimulation. He denies any new complaints. Denies fevers, chills, chest pain or abdominal pain. Discussed CM is working with him and his family on SNF placement. Medications: Reviewed: Yes Vitals/I&O/Wt Last Vital Signs Temp 98.0 F 03/26/23 07:54 Pulse 72 03/26/23 11:13 Resp 16 03/26/23 11:13 BP 151/80 03/26/23 11:13 Pulse Ox 95 03/26/23 11:13 O2 Del Method Room Air 03/26/23 11:13 03/25/23 03/26/23 03/26/23 22:59 06:59 14:59 Intake Total 1120 / 1360 1000 / 2360 120 / 120 Output Total 100 / 100 Balance 1120 / 1360 1000 / 2360 Physical Exam Narrative: General: Patient is sleepinb, but awakes easily. Head: Normocephalic. EOM intact. Periorbital bruising is improving. Neck: No JVD. Cardiovascular: RRR. No gallops. No murmurs. Lungs: Clear to auscultation, no use of accessory muscles, no crackles or wheezes. Skin: No jaundice. No rashes. Abdomen: Normal bowel sounds, abdomen soft and nontender. Genito Urinary: Genital exam not performed since complaints not related. Rectal: Rectal exam not performed since no symptoms indicated blood loss. Extremities: No cyanosis or clubbing. Musculoskeletal: No erythematous joints. Neurological: Moves all 4 extremities. No myoclonus. Urinary Catheter Management: Savage: Cath Placed During This Visit: yes, but has since been removed by the nurse Reason for Continuing Indwelling Catheter: Decision to DC Catheter Urinary Catheter Date of Insertion: 03/24/23 Urinary Catheter Time of Insertion: 18:58 Date Urinary Catheter Removed: 03/25/23 Time Urinary Catheter Discontinued: 16:37 Data 03/23/23 09:21 03/23/23 09:21 A&P Assessment and plan (1) Concussion: Mentation is improving, likely approaching baseline Continue therapies CM has seen referral for SNF for skilled therapy, will need insurance auth submitted on Monday (2) UTI (urinary tract infection): CAUTI Savage has been removed Continue ceftiraxone (03/25-P) (3) Cerebrovascular accident: Continue aspirin Continue statin Continue Plavix (4) Dementia: Continue Namenda (5) HTN (hypertension): Continue to monitor (6) Hyperlipemia: Continue statin Plan DVT ppx: Heparin Code status: AND Attestations Medical Necessity Statement*: tient requires ongoing hospitalization for concussion treatment, IV abx, therapy, and securing safe disposition. Coding Level of Care Code Acute Code for [facility] Diagnoses Concussion S06.0XAA UTI (urinary tract infection) N39.0 Cerebrovascular accident I63.9 Dementia F03.90 HTN (hypertension) I10 Hyperlipemia E78.5
[2023-03-26] MEDS: cefTRIAXone 1,000 MG in sodium chloride 0.9% (plus) 50 ML 100 MG IV (16:24)
[2023-03-26] MEDS: atorvastatin 40 mg Tablet 80 MG PO (21:38)
[2023-03-27 04:00] VITALS: BP 161/88; PULSE 75; RESP 17; TEMP 36.7; O2SAT 95
[2023-03-27] MEDS: heparin 5,000 unit/mL INJ 1 mL 5000 UNIT SUBCUT ×2 (04:14→18:00)
[2023-03-27] MEDS: sodium chloride 0.9% 1,000 ML 75 ML IV (04:15)
[2023-03-27 06:33] LABS: Basophils % 0.3 %; Eosinophils # 0.4 10^3/uL (0.0-0.8); Eosinophils % 3.8 %; Hematocrit 37.5 % (42.0-52.0); Hemoglobin 12.1 g/dL (11.7-16.6); Lymphocytes # 0.8 10^3/uL (0.8-4.8); Lymphocytes % 8.6 %; Mean Corpuscular HGB Conc 32.3 g/dL (30.0-36.0); Mean Corpuscular Hemoglobin 29.1 pg (28.0-34.0); Mean Corpuscular Volume 90.1 fl (80-94); Mean Platelet Volume 9.2 fL (7.4-10.4); Monocytes # 0.7 10^3/uL (0.2-0.9); Monocytes % 7.1 %; Neutrophils # 7.49 10^3/uL (1.8-7.7); Neutrophils % 79.9 %; Nucleated Red Blood Cells % 0 %; Platelet Count 237 10^3/cmm (130-400); Red Blood Count 4.16 10^6/uL (4.1-5.3); Red Cell Distribution Width 11.9 % (12.1-15.1); White Blood Count 9.4 10^3/uL (4.0-10.0)
[2023-03-27 06:43] LABS: Anion Gap 13.6 (5-19); Blood Urea Nitrogen 9 mg/dL (8-23); Calcium 8.7 mg/dL (8.5-10.5); Carbon Dioxide 25 mmol/L (22-29); Chloride 101 mmol/L (98-107); Glucose 90 mg/dL (65-115); Magnesium 1.9 mg/dL (1.7-2.3); Phosphorus 2.4 mg/dL (2.5-4.5); Potassium 3.6 mmol/L (3.5-5.1); Sodium 136 mmol/L (136-145)
--- NOTE | 2023-03-27 07:32 | PC.SOCIAL ---
IMM Update pg 2 of IMM not updated as patient remains in observation status @ this time.
[2023-03-27 07:43] VITALS: BP 164/90; PULSE 89; RESP 16; O2SAT 97
[2023-03-27] MEDS: sennosides-docusate Tablet 2 TAB PO ×2 (08:12→18:00)
[2023-03-27] MEDS: clopidogrel 75 mg Tablet PO (08:12)
[2023-03-27] MEDS: aspirin 325 mg Tablet PO (08:12)
[2023-03-27] MEDS: memantine 5 mg tablet 10 MG PO ×2 (08:12→18:00)
[2023-03-27] MEDS: tamsulosin 0.4 mg Capsule PO (08:12)
[2023-03-27] MEDS: escitalopram 10 mg Tablet PO (08:12)
[2023-03-27 11:02] VITALS: BP 149/83; PULSE 71; RESP 16; TEMP 36.5; O2SAT 97
[2023-03-27 15:29] VITALS: BP 150/84; PULSE 87; RESP 16; TEMP 36.8; O2SAT 95
[2023-03-27] MEDS: cefTRIAXone 1,000 MG in sodium chloride 0.9% (plus) 50 ML 100 MG IV (15:29)
--- NOTE | 2023-03-27 16:52 | PM.PN ---
Subjective Subjective: patient is awake, alert, but has had waxing and waning mentation. He was more conversant in the am hours, able to answer simple questions, now less consistent with his answers in the evening. He is following all commands for me however not engaging in conversation with me. He repeats his answers for family at bedside. Per daughter, he has had expressive apahasia since his recent stroke and had sun downing even prior to his stroke. Medications: Reviewed: Yes Vitals/I&O/Wt Last Vital Signs Temp 98.3 F 03/27/23 15:29 Pulse 87 03/27/23 15:29 Resp 16 03/27/23 15:29 BP 150/84 03/27/23 15:29 Pulse Ox 95 03/27/23 15:29 O2 Del Method Room Air 03/27/23 15:29 03/27/23 03/27/23 03/27/23 06:59 14:59 22:59 Intake Total 170 / 170 Balance 170 / 170 Physical Exam Narrative: General: No acute distress, unable to assess orientation due to aphasia. HEENT: PERRLA, pupils bilaterally equal and reactive, pallors not present Chest: Normal vesicular breath sounds, no added sounds, equal good air entry bilaterally CVS: S1-S2 regular, no murmurs, no tachycardia, no gallops, no rubs Abdomen: Soft, nontender, no organomegaly, bowel sounds present Neuro: moves all extrenities to command, right side appears weaker compared to left in lower extremities Urinary Catheter Management: Savage: Cath Placed During This Visit: yes, but has since been removed by the nurse Reason for Continuing Indwelling Catheter: Decision to DC Catheter Urinary Catheter Date of Insertion: 03/24/23 Urinary Catheter Time of Insertion: 18:58 Date Urinary Catheter Removed: 03/25/23 Time Urinary Catheter Discontinued: 16:37 Data 03/27/23 06:00 03/27/23 06:00 Micro: Microbiology 03/22/23 06:06 Blood Culture - Final Blood NO GROWTH AFTER 5 DAYS 03/22/23 06:06 Blood Culture - Final Blood NO GROWTH AFTER 5 DAYS A&P Assessment and plan (1) Hyperlipemia: Continue statin (2) HTN (hypertension): Continue to monitor (3) Lewy body dementia with behavioral disturbance: (4) Dementia: Continue Namenda (5) Cerebrovascular accident: Continue aspirin Continue statin Continue Plavix (6) Altered mental status: (7) Concussion: Mentation is improving, approaching baseline since his recent stroke Continue therapies CM has seen referral for SNF for skilled therapy, awaiting disposition planning (8) UTI (urinary tract infection): D/c Ceftriaxone, urine cx returned negative Plan DVT ppx: Heparin Code status: AND Attestations Medical Necessity Statement*: awaiting appropriate disposition planning Coding Level of Care Code Acute Code for Chg Fwd Diagnoses Hyperlipemia E78.5 HTN (hypertension) I10 Lewy body dementia with behavioral disturbance G31.83; F02.81 Dementia F03.90 Cerebrovascular accident I63.9 Altered mental status R41.82 Concussion S06.0XAA UTI (urinary tract infection) N39.0
--- NOTE | 2023-03-27 18:20 | PC.NURSE ---
Shift Summary: uneventful shift. Patient was up to a chair for breakfast and lunch, but spent most of the day in bed. PT worked with patient but was unable to walk due to lack of balance. Nurse tried to ambulate again after dinner, but patient unable to follow directions. Today patient was able to state name and date of , unable to answer any orientation questions. Mental status is variable and he often repeats what is being asked of him or will refuse to answer. Sometimes is awake and alert, other times hard to rouse. Baseline mental status has been hard to establish. Patient was able to walk, converse, and only had occasional memory lapses according to the family before his recent stroke a few weeks ago. Patient has been readmitted before a new baseline could be determined. Family states that the behavior described above is a decline since the recent stroke. 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
[2023-03-27 20:00] VITALS: BP 162/84; PULSE 81; RESP 18; TEMP 36.7; O2SAT 95
[2023-03-27] MEDS: atorvastatin 40 mg Tablet 80 MG PO (21:55)
[2023-03-27 23:31] VITALS: BP 159/70; PULSE 87; RESP 16; TEMP 37.1; O2SAT 96
[2023-03-28] MEDS: heparin 5,000 unit/mL INJ 1 mL 5000 UNIT SUBCUT ×2 (04:46→17:17)
[2023-03-28 04:50] VITALS: BP 149/83; PULSE 71; RESP 17; TEMP 37.1; O2SAT 96
[2023-03-28 07:43] VITALS: BP 155/75; PULSE 70; RESP 17; TEMP 36.4; O2SAT 94
[2023-03-28] MEDS: clopidogrel 75 mg Tablet PO (08:42)
[2023-03-28] MEDS: escitalopram 10 mg Tablet PO (08:42)
[2023-03-28] MEDS: memantine 5 mg tablet 10 MG PO ×2 (08:42→17:17)
[2023-03-28] MEDS: aspirin 325 mg Tablet PO (08:42)
[2023-03-28] MEDS: tamsulosin 0.4 mg Capsule PO (08:42)
[2023-03-28] MEDS: sennosides-docusate Tablet 2 TAB PO ×2 (08:42→17:18)
[2023-03-28 12:00] VITALS: BP 103/65; PULSE 100; RESP 14; TEMP 36.4; O2SAT 94
[2023-03-28 15:46] VITALS: BP 108/68; PULSE 47; RESP 16; TEMP 36.4; O2SAT 97
--- NOTE | 2023-03-28 16:11 | PM.PN ---
Subjective Subjective: No acute interim events. Mental status overall unchanged. Patient is sitting in a chair by his bedside today. No acute distress. Medications: Reviewed: Yes Vitals/I&O/Wt Last Vital Signs Temp 97.5 F L 03/28/23 15:46 Pulse 47 L 03/28/23 15:46 Resp 16 03/28/23 15:46 BP 108/68 03/28/23 15:46 Pulse Ox 97 03/28/23 15:46 O2 Del Method Room Air 03/28/23 15:46 03/28/23 03/28/23 03/28/23 06:59 14:59 22:59 Intake Total 180 / 1470 220 / 220 Balance 180 / 1470 220 / 220 Physical Exam Narrative: General: No acute distress, unable to assess orientation due to aphasia. HEENT: PERRLA, pupils bilaterally equal and reactive, pallors not present Chest: Normal vesicular breath sounds, no added sounds, equal good air entry bilaterally CVS: S1-S2 regular, no murmurs, no tachycardia, no gallops, no rubs Abdomen: Soft, nontender, no organomegaly, bowel sounds present Neuro: moves all extrenities to command, right side appears weaker compared to left in lower extremities Urinary Catheter Management: Savage: Cath Placed During This Visit: yes, but has since been removed by the nurse Reason for Continuing Indwelling Catheter: Decision to DC Catheter Urinary Catheter Date of Insertion: 03/24/23 Urinary Catheter Time of Insertion: 18:58 Date Urinary Catheter Removed: 03/25/23 Time Urinary Catheter Discontinued: 16:37 Data 03/27/23 06:00 03/27/23 06:00 A&P Assessment and plan (1) Hyperlipemia: Continue statin (2) HTN (hypertension): Continue to monitor (3) Lewy body dementia with behavioral disturbance: (4) Dementia: Continue Namenda (5) Cerebrovascular accident: Continue aspirin Continue statin Continue Plavix (6) Altered mental status: (7) Concussion: Mentation is improving, approaching baseline since his recent stroke Continue therapies CM has seen referral for SNF for skilled therapy, awaiting disposition planning (8) UTI (urinary tract infection): D/c Ceftriaxone, urine cx returned negative Plan DVT ppx: Heparin Code status: AND Attestations Medical Necessity Statement*: Appropriate disposition planning ongoing Coding Level of Care Code Acute Code for Chg Fwd Diagnoses Hyperlipemia E78.5 HTN (hypertension) I10 Lewy body dementia with behavioral disturbance G31.83; F02.81 Dementia F03.90 Cerebrovascular accident I63.9 Altered mental status R41.82 Concussion S06.0XAA UTI (urinary tract infection) N39.0
[2023-03-28 19:27] VITALS: BP 137/83; PULSE 85; RESP 16; TEMP 36.8; O2SAT 96
[2023-03-28] MEDS: atorvastatin 40 mg Tablet 80 MG PO (21:02)
[2023-03-29 00:10] VITALS: BP 145/83; PULSE 79; RESP 16; TEMP 37; O2SAT 96
[2023-03-29 04:38] VITALS: BP 136/84; PULSE 76; RESP 15; TEMP 37.1; O2SAT 96
[2023-03-29] MEDS: heparin 5,000 unit/mL INJ 1 mL 5000 UNIT SUBCUT (05:11)
[2023-03-29 06:10] LABS: SARS Covid-2 Antigen negative (Negative)
[2023-03-29 07:55] VITALS: BP 155/82; PULSE 69; RESP 16; O2SAT 94
[2023-03-29] MEDS: clopidogrel 75 mg Tablet PO (08:53)
[2023-03-29] MEDS: sennosides-docusate Tablet 2 TAB PO (08:53)
[2023-03-29] MEDS: tamsulosin 0.4 mg Capsule PO (08:53)
[2023-03-29] MEDS: memantine 5 mg tablet 10 MG PO (08:53)
[2023-03-29] MEDS: escitalopram 10 mg Tablet PO (08:53)
[2023-03-29] MEDS: aspirin 325 mg Tablet PO (08:53)
[2023-03-29 11:48] VITALS: BP 146/74; PULSE 84; RESP 16; TEMP 36.4; O2SAT 96
--- NOTE | 2023-03-29 12:43 | PC.SOCIAL ---
IMM not Updated IMM not updated as patient remains in observation status @ this time.
[2023-03-29 15:22] VITALS: BP 144/95; PULSE 64; RESP 16; O2SAT 94
[2023-03-29 16:21] VITALS: BP 144/95; PULSE 64; RESP 16; O2SAT 94
--- NOTE | 2023-03-29 23:12 | P.DS_ITS ---
Discharge Providers Date of Admission: 03/22/23 00:22 Date of Discharge: March 29, 2023 Attending Provider at Admission: Gail Cheung MD Attending Provider at Discharge: Monie Paniagua MD Primary Care Provider: Shabbir Moran MD Diagnoses at Discharge Discharge Diagnosis (1) Hyperlipemia: Status: Acute (2) HTN (hypertension): Status: Acute (3) Lewy body dementia with behavioral disturbance: Status: Acute (4) Dementia: Status: Acute (5) Cerebrovascular accident: Status: Acute (6) Altered mental status: Status: Acute (7) Concussion: Status: Acute (8) UTI (urinary tract infection): Status: Acute Reason for Visit Reason for Visit: Stroke-Like Symptoms Hospital Course Hospital Course Patient is an 83 year old male who had a recent left thalamic stroke with profound obtundation superimposed upon his chronic end-stage dementia.? He was brought to the hospital with obtundation after he fell out of bed and hit his head.? Patient was evaluated by neurology and it was felt that patient would not be able to be appropriately managed at home and would benefit from rehab because of his recent stroke and superimposed concussion.? The patient was interm ittently obtunded but not comatose during the course of admission here. He was able to swallow and evaluted by speech therapy for appropriate recommendations.? He was also diagnosed with UTI and treated with Ceftriaxone for the same. His mentatiom improved in that he became more alert, was able to recognize family at bedside, followed commands often, though remained aphasic and disoriented. Per family, he was close to his baseline mentation. He is being continued on aspirin, clopidogrel and statins at discharge. Physical Exam Narrative: General: No acute distress, unable to assess orientation due to aphasia. HEENT: PERRLA, pupils bilaterally equal and reactive, pallors not present Chest: Normal vesicular breath sounds, no added sounds, equal good air entry bilaterally CVS: S1-S2 regular, no murmurs, no tachycardia, no gallops, no rubs Abdomen: Soft, nontender, no organomegaly, bowel sounds present Neuro: moves all extrenities to command, right side appears weaker compared to left in lower extremities Urinary Catheter Management: Savage: Cath Placed During This Visit: yes, but has since been removed by the nurse Reason for Continuing Indwelling Catheter: Decision to DC Catheter Urinary Catheter Date of Insertion: 03/24/23 Urinary Catheter Time of Insertion: 18:58 Date Urinary Catheter Removed: 03/25/23 Time Urinary Catheter Discontinued: 16:37 Discharge Data Studies Completed and Pending Completed Studies During Hospitalization Category Date Time Status CT abdomen pelvis wo con [id number] Stat Cat Scan 03/21/23 18:[address] cervical spin wo con* [id number] Stat Cat Scan 03/21/23 18:[address] facial bones wo con* [id number] Stat Cat Scan 03/21/23 18:[address] head wo con* [id number] Stat Cat Scan 03/21/23 18:52 Completed XR chest 1V portable [id number] Stat Exams 03/21/23 18:52 Completed XR finger RT min 2V [id number] Stat Exams 03/21/23 18:52 Completed Radiology Impressions Abdomen/Pelvis CT 03/21/23 18:52 IMPRESSION: 1. Negative for traumatic injury to the abdomen or pelvis. 2. Coronary artery atherosclerotic calcifications. 3. Emphysematous changes. 4. Constipation. 5. 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 6. 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 Cervical Spine CT 03/21/23 18:52 IMPRESSION: No acute findings. Chest X-Ray 03/21/23 18:52 IMPRESSION: No acute findings. Face CT 03/21/23 18:52 IMPRESSION: No acute bony findings. Finger X-Ray 03/21/23 18:52 IMPRESSION: No acute findings. Head CT 03/21/23 18:52 IMPRESSION: No acute intracranial abnormality. Laboratory Results WBC 9.4 10^3/uL (4.0-10.0) 03/27/23 06:00 RBC 4.16 10^6/uL (4.1-5.3) 03/27/23 06:00 Hgb 12.1 g/dL (11.7-16.6) 03/27/23 06:00 Hct 37.5 % (42.0-52.0) L 03/27/23 06:00 MCV 90.1 fl (80-94) 03/27/23 06:00 MCH 29.1 pg (28.0-34.0) 03/27/23 06:00 MCHC 32.3 g/dL (30.0-36.0) 03/27/23 06:00 RDW 11.9 % (12.1-15.1) L 03/27/23 06:00 Plt Count 237 10^3/cmm (130-400) 03/27/23 06:00 MPV 9.2 fL (7.4-10.4) 03/27/23 06:00 Neut % (Auto) 79.9 % 03/27/23 06:00 Lymph % (Auto) 8.6 % 03/27/23 06:00 [place] % (Auto) 7.1 % 03/27/23 06:00 Eos % (Auto) 3.8 % 03/27/23 06:00 Baso % (Auto) 0.3 % 03/27/23 06:00 Neut # (Auto) 7.49 10^3/uL (1.8-7.7) 03/27/23 06:00 Lymph # (Auto) 0.8 10^3/uL (0.8-4.8) 03/27/23 06:00 [place] # (Auto) 0.7 10^3/uL (0.2-0.9) 03/27/23 06:00 Eos # (Auto) 0.4 10^3/uL (0.0-0.8) 03/27/23 06:00 Baso # (Auto) 0.0 10^3/uL (0.0-0.1) 03/27/23 06:00 Nucleated RBC % (auto) 0 % 03/27/23 06:00 Nucleated RBCs # 0.0 /100WBC 03/27/23 06:00 Specimen Type Arterial 03/21/23 22:30 Sample Site Radial, right 03/21/23 22:30 ABG pH 7.42 (7.35-7.45) 03/21/23 22:30 ABG pCO2 45.7 mmHg (35-45) H 03/21/23 22:30 ABG pO2 72.8 mmHg (80.0-100.0) L 03/21/23 22:30 ABG HCO3 29.5 mmol/L (22-26) H 03/21/23 22:30 ABG Base Excess 4.3 mmol/L (-2.0-2.0) H 03/21/23 22:30 Hong Test Pos 03/21/23 22:30 Hematocrit 37.4 % (42-52) L 03/21/23 22:30 O2 Delivery Device None 03/21/23 22:30 FiO2 21.0 % 03/21/23 22:30 Industrial Relations Director ID Heriberto 03/21/23 22:30 Sodium 136 mmol/L (136-145) 03/27/23 06:00 Potassium 3.6 mmol/L (3.5-5.1) 03/27/23 06:00 Chloride 101 mmol/L (98-107) 03/27/23 06:00 Carbon Dioxide 25 mmol/L (22-29) 03/27/23 06:00 Anion Gap 13.6 (5-19) 03/27/23 06:00 BUN 9 mg/dL (8-23) 03/27/23 06:00 Creatinine 0.8 mg/dL (0.7-1.2) 03/27/23 06:00 GFR Calculation Not Reportable 03/27/23 06:00 Glucose 90 mg/dL (65-115) 03/27/23 06:00 POC Glucose 94 mg/dL (70-110) 03/26/23 11:40 Calculated Osmolality 299 mOsm/kg (285-295) H 03/23/23 09:21 Lactic Acid 0.6 mmol/L (0.5-2.2) 03/22/23 06:06 Calcium 8.7 mg/dL (8.5-10.5) 03/27/23 06:00 Phosphorus 2.4 mg/dL (2.5-4.5) L 03/27/23 06:00 Magnesium 1.9 mg/dL (1.7-2.3) 03/27/23 06:00 Total Bilirubin 0.8 mg/dL (0.15-1.2) 03/23/23 09:21 AST 15 U/L (0-40) 03/23/23 09:21 ALT 11 U/L (0-41) 03/23/23 09:21 Alkaline Phosphatase 88 U/L (40-130) 03/23/23 09:21 Ammonia 22 umol/L (16-60) 03/22/23 06:06 Troponin T Baseline 20 ng/L (0-15) H 03/21/23 23:22 Troponin T 120 Minute 19.33 ng/L (0-15) H 03/22/23 01:42 Delta Troponin T -0.67 ABS# (0-10) L 03/22/23 01:42 Troponin T Hi Sens 6Hr 19.73 ng/L (0-15) H 03/22/23 06:06 Troponin T Hi Sens 6Hr Delta -0.27 ng/L (0-12) L 03/22/23 06:06 C-Reactive Protein 57.5 mg/L (0.0-4.9) H 03/21/23 23:22 Total Protein 6.7 g/dL (6.6-8.7) 03/23/23 09:21 Albumin 3.0 g/dL (3.5-5.2) L 03/27/23 06:00 Globulin 3.3 g/dL (1.3-4.6) 03/23/23 09:21 Vitamin B12 1449 pg/mL (232-1245) H 03/22/23 06:06 Procalcitonin 0.07 ng/mL (0-0.5) 03/22/23 06:06 TSH 1.50 uIU/mL (0.27-4.20) 03/22/23 06:06 Prolactin 8.36 ng/mL (4.0-15.2) 03/22/23 06:06 Urine Color Yellow (Yellow) 03/24/23 11:33 Urine Appearance Hazy (CLEAR) A 03/24/23 11:33 Urine pH 7 (5-7) 03/24/23 11:33 Ur Specific [place] 1.015 (1.005-1.030) 03/24/23 11:33 Urine Protein Neg (Negative) 03/24/23 11:33 Urine Glucose (UA) Norm (Normal) 03/24/23 11:33 Urine Ketones 1+ (Negative) H 03/24/23 11:33 Urine Blood 3+ (Negative) H 03/24/23 11:33 Urine Nitrate Negative (Negative) 03/24/23 11:33 Urine Bilirubin Neg (Negative) 03/24/23 11:33 Prot Sulfosalicylic Acd Cancelled 03/21/23 20:23 Urine Urobilinogen 8 mg/dL (Negative) H 03/24/23 11:33 Ur Leukocyte Esterase 2+ (Negative) H 03/24/23 11:33 Urine RBC 25-40 /hpf (0-2) H 03/24/23 11:33 Urine WBC 25-40 /hpf (0-5) H 03/24/23 11:33 Ur Squamous Epith Cells None /hpf (0-5) 03/24/23 11:33 Amorphous Sediment Not Reportable 03/24/23 11:33 Urine Bacteria 1+ /hpf (NONE) H 03/24/23 11:33 Urine Mucus 1+ /hpf 03/21/23 21:25 SARS-CoV-2 Ag (Rapid) negative (Negative) 03/29/23 05:50 Vitals Last Vital Signs Temp 97.6 F 03/29/23 11:48 Pulse 64 03/29/23 16:21 Resp 16 03/29/23 16:21 BP 144/95 03/29/23 16:21 Pulse Ox 94 03/29/23 16:21 O2 Del Method Room Air 03/29/23 15:22 Discharge Plan Discharge Patient Disposition: Xfer SNF Condition: Stable Prescriptions: Continued furosemide 20 mg tablet 40 mg PO DAILY albuterol sulfate [Ventolin HFA] 90 mcg/actuation HFA aerosol inhaler 2 puff inhalation Q6H PRN (Reason: shortness of breath or wheezing) Qty: 8.5 11RF nystatin 100,000 unit/gram powder 1 applic topical BID Qty: 30 4RF terbinafine HCl [Lamisil AT] 1 % cream 1 applic topical BID Qty: 30 2RF Rx Instructions: apply to feet bid ciprofloxacin HCl 0.3 % Drops 1 drp OPHTHALMIC (EYE) DAILY Rx Instructions: left eye daily for 4 days atorvastatin 40 mg tablet 80 mg PO BEDTIME tamsulosin 0.4 mg capsule 0.4 mg PO DAILY escitalopram oxalate 10 mg tablet 10 mg PO DAILY memantine 10 mg tablet 10 mg PO BID clopidogrel 75 mg Tablet 75 mg PO DAILY Qty: 21 0RF amlodipine 5 mg tablet 5 mg PO DAILY PRN (Reason: Hypertension) Qty: 30 11RF Rx Instructions: SBP >150, DBP >90 aspirin 325 mg Tablet 325 mg PO DAILY Qty: 90 0RF Held metoprolol tartrate 25 mg tablet 25 mg PO BID Hold Instructions: Resume on 04/05/23. bradycardic during admission Discharge Orders: Discharge Order (Routine); Ordered 03/29/23 Ordered By: Monie Paniagua Referrals: [facility] [Outside] Shayy Potts MD [Physician] - 04/11/23 1:30 pm Discharge Diet: As Directed and Cardiac Discharge Activity: Resume usual activity Patient Instructions: Hyponatremia (ED), Benzodiazepine Use Disorder (ED), Dementia (ED), Non-diabetic Hypoglycemia (ED), Hypoglycemia in a Person with Diabetes (ED), Concussion (ED), Alcohol Intoxication (ED), Subarachnoid Hemorrhage (GEN), Altered Mental Status (ED), Opioid Safety Discharge Attestations Time Spent in Discharge Care*: greater than 30 min Quality Metrics Clinical Quality Measures [ No reported AMI, CVA or VTE this stay] Coding Level of Care Code Acute Code for Chg Fwd Diagnoses Hyperlipemia E78.5 HTN (hypertension) I10 Lewy body dementia with behavioral disturbance G31.83; F02.81 Dementia F03.90 Cerebrovascular accident I63.9 Altered mental status R41.82 Concussion S06.0XAA UTI (urinary tract infection) N39.0
== END 2023-03-29 16:23 | disposition skilled nursing facility (03) ==
LOC: ER 23:04 → MEDSURG 03-22 00:22
PROVIDERS: Internal Medicine; Admitting Provider Internal Medicine; Emergency Provider Emergency Medicine; PCP Family Medicine; Visit Provider Student in an Organized Health Care Education/Training Program
DX: I69.320 Aphasia following cerebral infarction (principal); I10 Essential (primary) hypertension; E78.5 Hyperlipidemia, unspecified; G31.83 Neurocognitive disorder with Lewy bodies; F02.80 Dementia in other diseases classified elsewhere, unspecified severity, without behavioral disturbance, psychotic disturbance, mood disturbance, and anxiety; I45.10 Unspecified right bundle-branch block; N39.0 Urinary tract infection, site not specified; I25.10 Atherosclerotic heart disease of native coronary artery without angina pectoris; K59.00 Constipation, unspecified; N32.89 Other specified disorders of bladder; R00.1 Bradycardia, unspecified; J43.9 Emphysema, unspecified; S60.00XA Contusion of unspecified finger without damage to nail, initial encounter; S00.11XA Contusion of right eyelid and periocular area, initial encounter; S00.83XA Contusion of other part of head, initial encounter; W06.XXXA Fall from bed, initial encounter; Z87.891 Personal history of nicotine dependence; Z51.5 Encounter for palliative care; Z79.82 Long term (current) use of aspirin; Z79.899 Other long term (current) drug therapy; Z79.02 Long term (current) use of antithrombotics/antiplatelets; Z88.0 Allergy status to penicillin; Z75.1 Person awaiting admission to adequate facility elsewhere
CPT/HCPCS: 36415; 36416; 36600; 51701; 51702; 70450; 70486; 71045; 72125; 73140; 74176; 80053; 80069; 81001; 82140; 82607; 82803; 82962; 83605; 83735; 84100; 84145; 84146; 84443; 84484; 85025; 86140; 87040; 87086; 87426; 92507; 92523; 92526; 92610; 93005; 96361; 96372; 97110; 97161; 97530; 99285; G0378; J0696; J1644; J7030

== ENCOUNTER → 2023-04-19 14:39 | Outpatient (BNVA) | payer MEDICARE, SELFPAY | PROVIDERS: PCP Family Medicine; Visit Provider Psychiatry & Neurology Neurology | DX: F03.90 Unspecified dementia, unspecified severity, without behavioral disturbance, psychotic disturbance, mood disturbance, and anxiety (principal); R26.2 Difficulty in walking, not elsewhere classified; R25.2 Cramp and spasm; R26.9 Unspecified abnormalities of gait and mobility; I69.322 Dysarthria following cerebral infarction; I69.398 Other sequelae of cerebral infarction; I10 Essential (primary) hypertension; S06.0XAA Concussion with loss of consciousness status unknown, initial encounter; X58.XXXA Exposure to other specified factors, initial encounter; Z87.891 Personal history of nicotine dependence | CPT/HCPCS: 99203 ==